=== PATIENT | female | born 1940 | race Caucasian/White ===

== ENCOUNTER → 2017-02-22 | Outpatient (CLI) | payer OTHER | LOC: BMCIMAGING 13:41 | PROVIDERS: ATTEND Internal Medicine | DX: Z12.31 Encounter for screening mammogram for malignant neoplasm of breast (principal); Z85.3 Personal history of malignant neoplasm of breast | CPT/HCPCS: G0202 ==

== ENCOUNTER → 2018-02-26 | Outpatient (CLI) | payer OTHER | LOC: BMCIMAGING 14:50 | PROVIDERS: ATTEND Internal Medicine | DX: Z12.31 Encounter for screening mammogram for malignant neoplasm of breast (principal); Z85.3 Personal history of malignant neoplasm of breast ==

== ENCOUNTER 2018-05-16 09:44 | Inpatient (IN) | payer OTHER ==
[2018-05-16] MEDS ORDERED: NS 500 ML IV ONE (10:14)
--- NOTE | 2018-05-16 10:17 | EDPHY ---
H & P Stated Complaint: abd pain bloating snce monday n/v Time Seen by Provider: 05/16/18 10:10 HPI/ROS: CHIEF COMPLAINT: Right lower quadrant abdominal pain, bloating x3 days HISTORY OF PRESENT ILLNESS: 77-year-old female with history of colon cancer with colon resection in [address] Zeke Miranda in the ER complaining of 3 days of right lower quadrant pain, bloating, nausea. Bowel movements normal. Last bowel movement was yesterday. No vomiting. No back or flank pain. No chest pain. No dyspnea. No urinary abnormality. Last oral intake was dinner last evening PRIMARY CARE PROVIDER: REVIEW OF SYSTEMS: 10 systems reviewed and negative with the exception of the elements mentioned in the history of present illness PAST MEDICAL & SURGICAL HISTORY: Colon cancer. Partial colectomy SOCIAL HISTORY: nonsmoker PHYSICAL EXAM (Prior to examination, patient consented to physical exam, hands were washed and my usual and customary physical exam procedures followed) 1) GENERAL: Well-developed, well-nourished, alert and oriented. Appears to be in no acute distress. 2) HEAD: Normocephalic, atraumatic 3) HEENT: Pupils equal, round, reactive to light bilaterally. Sclera anicteric. 4) NECK: Full range of motion, no meningeal signs. 5) LUNGS: Clear auscultation bilaterally, no wheezes, no rhonchi, no retractions. 6) HEART: Regular rate and rhythm, no murmur, no heave, no gallop. 7) ABDOMEN: No guarding, tender to palpation right lower quadrant, negative Burns's, negative Rovsing's, negative peritoneal sign, 8) MUSCULOSKELETAL: Moving all extremities, no focal areas of tenderness, no obvious trauma. No peripheral edema or discoloration. 9) BACK: No CVA tenderness, no midline vertebral tenderness, no fluctuance, no step-off, no obvious trauma, no visual or palpable abnormality. 10) SKIN: No rash, no petechiae. 11) Psychiatric: Patient is oriented X 3, there is no agitation. DIFFERENTIAL DIAGNOSIS: In no particular order including but not limited to malignancy, acute appendicitis, bowel obstruction, acute diverticulitis - Personal History Current Tetanus Diphtheria and Acellular Pertussis (TDAP): Yes - Medical/Surgical History Hx Asthma: No Hx Chronic Respiratory Disease: No Hx Diabetes: No Hx Cardiac Disease: No Hx Renal Disease: No Hx Cirrhosis: No Hx Alcoholism: No Hx HIV/AIDS: No Hx Splenectomy or Spleen Trauma: No Other PMH: htn, arthritis in spine. colon cancer. abd surgeries, colon polyp, lumpectomy right for breast ca. angioplasty "i have a stent in my groin" - Social History Smoking Status: Former smoker Constitutional: Initial Vital Signs Temperature (C) 36.5 C 05/16/18 09:54 Heart Rate 59 L 05/16/18 09:54 Respiratory Rate 18 05/16/18 09:54 Blood Pressure 184/65 H 05/16/18 09:54 O2 Sat (%) 97 05/16/18 09:54 O2 Delivery Mode Room Air Allergies/Adverse Reactions: No Known Allergies Allergy (Verified 05/16/18 09:53) Home Medications: Medication Instructions Recorded Lisinopril/Hydrochlorothiazide 1 each PO DAILY 12/24/13 [Zestoretic 20-25 mg Tablet] Metoprolol Tartrate [Lopressor 100 100 mg PO TID 12/24/13 mg (*)] hydrALAZINE [Apresoline 50 mg (*)] 50 mg PO BID 12/24/13 Naproxen Sodium [Aleve 220 MG (*)] 220 mg PO BID PRN 05/16/18 Medical Decision Making - Diagnostics Imaging Results: Imaging Impressions Abdomen CT 05/16/18 11:10 Impression: 1. Moderately dilated mid small bowel within the lower abdomen to upper pelvis with possible internal hernia versus closed loop volvulus. 2. Mild to moderate dilatation of distal small bowel with point of gradual transition in the right lower pelvis posteriorly without definitive point of obstruction although the mid to distal ileum is decompressed. 3. Extensive arteriosclerotic calcification of the abdominal aorta and pelvic branches without evidence for occlusion similar to the prior study from February,. 4. Stable mild compression superior endplate of T12. Previous DEXA scan revealed low bone mineral density. Findings discussed with Emmy Murillo PAC at 12:06 hour, 05/16/2018. Abdomen X-Ray 05/16/18 12:20 Impression: NG tube coiled in the stomach. Images reviewed myself ED Course/Re-evaluation: 10:16 a.m.: Old medical records reviewed by myself. Will plan on diagnostic studies and CT imaging of the abdomen for right lower quadrant abdominal pain. Indications risks benefits discussed with patient she provides verbal consent. I saw this patient independently based on established practice protocols. Care of patient under supervision of secondary supervising physician Dr Lr with whom I discussed case. 12:17 p.m.: Consultation with the patient's surgeon Dr. Zeke Miranda. I discussed with him with the imaging findings showing a small bowel obstruction, small bowel volvulus in the pelvis. He agrees to admit the patient primarily, request NG tube be placed in the ER which will be. - Data Points Laboratory Results: Laboratory Results 05/16/18 10:10 05/16/18 10:10 05/16/18 05/16/18 05/16/18 10:19 10:10 10:10 WBC RBC Hgb POC Hgb 15.0 gm/dL gm/dL (12.6-16.3) Hct POC Hct 44 % % (38-47) MCV MCH MCHC RDW Plt Count MPV Neut % (Auto) Lymph % (Auto) [place] % (Auto) Eos % (Auto) Baso % (Auto) Nucleat RBC Rel Count Absolute Neuts (auto) Absolute Lymphs (auto) Absolute Monos (auto) Absolute Eos (auto) Absolute Basos (auto) Absolute Nucleated RBC Immature Gran % Immature Gran # PT 12.3 SEC SEC (12.0-15.0) INR 0.89 (0.83-1.16) APTT 26.3 SEC SEC (23.0-38.0) POC Sodium 134 mEq/L L mEq/L (135-145) Sodium 135 mEq/L mEq/L (135-145) POC Potassium 3.5 mEq/L mEq/L (3.3-5.0) Potassium 3.9 mEq/L mEq/L (3.3-5.0) POC Chloride 96 mEq/L L mEq/L (97-110) Chloride 94 mEq/L L mEq/L (97-110) Carbon Dioxide 24 mEq/l mEq/l (22-31) Anion Gap 17 mEq/L H mEq/L (8-16) POC BUN 30 mg/dL H mg/dL (7-23) BUN 33 mg/dL H mg/dL (7-23) Creatinine 1.0 mg/dL mg/dL (0.6-1.0) POC Creatinine 1.1 mg/dL H mg/dL (0.6-1.0) Estimated GFR 53 Glucose 92 mg/dL mg/dL (70-100) POC Glucose 97 mg/dL mg/dL (70-100) Calcium 9.9 mg/dL mg/dL (8.5-10.4) Total Bilirubin 1.8 mg/dL H mg/dL (0.1-1.4) Conjugated Bilirubin 0.2 mg/dL mg/dL (0.0-0.5) Unconjugated Bilirubin 1.6 mg/dL H mg/dL (0.0-1.1) AST 32 IU/L IU/L (14-46) ALT 34 IU/L IU/L (9-52) Alkaline Phosphatase 76 IU/L IU/L (38-126) Total Protein 7.1 g/dL g/dL (6.3-8.2) Albumin 4.6 g/dL g/dL (3.5-5.0) Lipase 305 IU/L H IU/L (23-300) 05/16/18 10:10 WBC 8.20 10^3/uL 10^3/uL (3.80-9.50) RBC 3.79 10^6/uL L 10^6/uL (4.18-5.33) Hgb 13.7 g/dL g/dL (12.6-16.3) POC Hgb Hct 39.0 % % (38.0-47.0) POC Hct MCV 102.9 fL H fL (81.5-99.8) MCH 36.1 pg H pg (27.9-34.1) MCHC 35.1 g/dL g/dL (32.4-36.7) RDW 13.0 % % (11.5-15.2) Plt Count 341 10^3/uL 10^3/uL (150-400) MPV 9.6 fL fL (8.7-11.7) Neut % (Auto) 77.5 % H % (39.3-74.2) Lymph % (Auto) 13.7 % L % (15.0-45.0) [place] % (Auto) 7.7 % % (4.5-13.0) Eos % (Auto) 0.2 % L % (0.6-7.6) Baso % (Auto) 0.4 % % (0.3-1.7) Nucleat RBC Rel Count 0.0 % % (0.0-0.2) Absolute Neuts (auto) 6.36 10^3/uL 10^3/uL (1.70-6.50) Absolute Lymphs (auto) 1.12 10^3/uL 10^3/uL (1.00-3.00) Absolute Monos (auto) 0.63 10^3/uL 10^3/uL (0.30-0.80) Absolute Eos (auto) 0.02 10^3/uL L 10^3/uL (0.03-0.40) Absolute Basos (auto) 0.03 10^3/uL 10^3/uL (0.02-0.10) Absolute Nucleated RBC 0.00 10^3/uL 10^3/uL (0-0.01) Immature Gran % 0.5 % % (0.0-1.1) Immature Gran # 0.04 10^3/uL 10^3/uL (0.00-0.10) PT INR APTT POC Sodium Sodium POC Potassium Potassium POC Chloride Chloride Carbon Dioxide Anion Gap POC BUN BUN Creatinine POC Creatinine Estimated GFR Glucose POC Glucose Calcium Total Bilirubin Conjugated Bilirubin Unconjugated Bilirubin AST ALT Alkaline Phosphatase Total Protein Albumin Lipase Medications Given: Dextrose/Sodium Chloride (D5w 1/2 Ns) 1,000 mls @ 75 mls/hr IV CONT [facility] Stop: 11/12/18 13:59 Last Admin: 05/16/18 14:30 Dose: 1,000 mls Discontinued Medications Fentanyl (Sublimaze) 100 mcg IVP EDNOW ONE Stop: 05/16/18 12:21 Last Admin: 05/16/18 12:29 Dose: 100 mcg Sodium Chloride (Ns) 500 mls @ 0 mls/hr IV ONCE ONE PRN Reason: Wide Open Stop: 05/16/18 10:15 Last Admin: 05/16/18 10:18 Dose: 500 mls Sodium Chloride (Ns) 1,000 mls @ 0 mls/hr IV ONCE ONE PRN Reason: Wide Open Stop: 05/16/18 12:21 Last Admin: 05/16/18 12:29 Dose: 1,000 mls Point of Care Test Results: Chemistry 05/16/18 10:19 POC Sodium 134 mEq/L L mEq/L (135-145) POC Potassium 3.5 mEq/L mEq/L (3.3-5.0) POC Chloride 96 mEq/L L mEq/L (97-110) POC BUN 30 mg/dL H mg/dL (7-23) POC Creatinine 1.1 mg/dL H mg/dL (0.6-1.0) POC Glucose 97 mg/dL mg/dL (70-100) ISTAT H&H 05/16/18 10:19 POC Hgb 15.0 gm/dL gm/dL (12.6-16.3) POC Hct 44 % % (38-47) Departure - Departure Disposition: [facility] Inpatient Acute Clinical Impression: Small bowel obstruction, Volvulus of small intestine Condition: Fair
[2018-05-16 10:34] LABS: PLATELET COUNT 341 10^3/uL (150-400)
[2018-05-16 10:40] LABS: INR 0.89 (0.83-1.16); PROTIME(PATIENT) 12.3 SEC (12.0-15.0)
[2018-05-16] MEDS ORDERED: IOPAMIDOL (ISOVUE-300) 100 ML BTL ONE (11:16)
[2018-05-16] MEDS ORDERED: NS 1,000 ML IV ONE (12:20)
[2018-05-16] MEDS ORDERED: fentaNYL 100 MCG/2 ML INJ IVP ONE (12:20)
[2018-05-16] MEDS ORDERED: ZOLPIDEM TARTRATE 5 MG TAB PO PRN (13:55)
[2018-05-16] MEDS ORDERED: ONDANSETRON 4 MG/2 ML VIAL IVP PRN (13:55)
[2018-05-16] MEDS ORDERED: ACETAMINOPHEN 325 MG TAB PO PRN (13:55)
[2018-05-16] MEDS ORDERED: D5W 1/2 NS 1,000 ML IV SCH (14:00)
[2018-05-16] MEDS ORDERED: NAPROXEN SODIUM 220 MG TAB PO PRN (14:05)
[2018-05-16] MEDS: METOPROLOL TARTRATE 50 MG TAB PO SCH ×2 (16:25→22:00)
--- NOTE | 2018-05-16 20:44 | GCON ---
CHIEF COMPLAINT: Abdominal pain. HPI: 77-year-old female, well known to our practice, who presented to the ER this morning for complaints of abdominal pain and nausea. She states her symptoms began on Monday night. She was experiencing significant abdominal bloating, bilateral low abdominal pain, and nausea. She did vomit yesterday. Her last bowel movement was yesterday afternoon. Denies constipation or diarrhea. Her abdominal pain worsens with meals. She has been tolerating fluids well. She has a significant past medical history of colon cancer, for which she had a sigmoid colon resection in 2005. She states she has had a bowel obstruction once in the past, but is unable to recall the details - this resolved with NG management. CT scan performed while in the ED revealed dilated loops of small bowel consistent with a PSBO. Denies shortness of breath or chest pain. No fevers or chills. No hematemesis or hematochezia. No urinary complaints. No other concerns. CURRENT MEDICATIONS: Metoprolol, lisinopril, hydralazine, I-caps plus, aspirin. 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 PAST SURGICAL HISTORY: Sigmoid colectomy in August 2005, right lumpectomy with sentinel lymph node biopsy in August 2010, and bilateral cataract surgery in 2014. FAMILY HISTORY: Noncontributory. SOCIAL HISTORY: A former smoker. Retired. to [employer]. Occasional alcohol. No recreational drugs. ALLERGIES: No known drug allergies. REVIEW OF SYSTEMS: A 12-point review of systems was reviewed and otherwise negative as above. PHYSICAL EXAM: VITAL SIGNS: Blood pressure 192/64, heart rate 53, O2 sat 94%, respiratory rate 16, temperature 36.7 C. GENERAL: Appears comfortable, in no distress. HEENT: Anicteric. No cervical or supraclavicular lymphadenopathy. Nasogastric tube in place- 200cc gastric fluid drainage. HEART: Bradycardic, regular rhythm without murmurs. LUNGS: Clear to auscultation bilaterally. ABDOMEN: Soft, distended, mild tenderness in the suprapubic region and right lower quadrant. No rebound tenderness or guarding. No other peritoneal signs. NEUROLOGIC: nonfocal. EXTREMITIES: No edema bilaterally. SKIN: Normal. ASSESSMENT: Small bowel obstruction. PLAN: Agree with diagnosis of small bowel obstruction as seen on CT scan. No concern for ischemic bowel at this time. Imaging reviewed on PACS. She had a nasogastric tube placed in the ER, which has relieved some of her nausea. Plan to admit patient to Med-Surg. Will continue with bowel decompression and IV fluids. Clear fluid diet okay. Activity as tolerated. If no resolution within 2-3 days or clinical decompensation, consideration for surgical exploration to be entertained at that time. Patient seen by Dr. Miranda as well. /[id number]/MODL MTDD
[2018-05-16] MEDS: D5W 1/2 NS W/ 20 KCl/L 1,000 ML IV SCH (22:45)
[2018-05-17] MEDS: METOPROLOL TARTRATE 50 MG TAB PO SCH ×3 (09:25→22:33)
[2018-05-17] MEDS: HYDROCHLOROTHIAZIDE 25 MG TAB PO SCH (09:25)
[2018-05-17] MEDS: LISINOPRIL 20 MG TAB PO SCH (09:26)
[2018-05-17] MEDS: KETOROLAC 15 MG/1 ML SDV IVP PRN (09:35)
--- NOTE | 2018-05-17 10:45 | PDMN ---
Medical Necessity Medical necessity: Pt meets IP criteria per PA & MCG M-210; est los >2 mn for eval/tx of SBO; requiring NG tube & IVFs; per consult & order 05/16/18
[2018-05-17] MEDS: HYDROmorphONE/DILAUDID 1 MG/ML INJ IVP PRN ×2 (11:56→14:41)
[2018-05-17] MEDS: D5W 1/2 NS W/ 20 KCl/L 1,000 ML IV SCH (14:41)
[2018-05-17] MEDS ORDERED: BUPIVACAINE/EPI 0.5% 30 ML SDV ONE (15:38)
[2018-05-17] MEDS ORDERED: cefOXitin SODIUM 2 GM in NS 100 ML IV ONE (15:56)
--- NOTE | 2018-05-17 15:56 | SOAPPROG ---
SOAP Progress Note Assessment/Plan: Assessment:no overnight progress. no flatus. pain persists. avss. abd dist, mild tenderness persists across lower abd bowel loops. KUB unchanged. SBO - needs exploration for failure to progress and concerns for possible closed loop obstruction. risks and benefits discussed in detail with patient. will attempt laparoscopically. all questions answered. Plan: 05/17/18 15:52 Objective: Vital Signs Temp Pulse Resp BP Pulse Ox 36.8 C 62 16 175/63 H 94 05/17/18 11:51 05/17/18 11:51 05/17/18 11:51 05/17/18 11:51 05/17/18 11:51 Laboratory Results 05/17/18 04:30 05/16/18 05/17/18 05/18/18 05:59 05:59 05:59 Intake Total 396 703 Output Total 600 100 Balance -204 603 PT 12.3 SEC (12.0-15.0) 05/16/18 10:10 INR 0.89 (0.83-1.16) 05/16/18 10:10 ICD10 Worksheet Patient Problems: Problems Problem Status Onset Small bowel obstruction Acute Volvulus of small intestine Acute
--- NOTE | 2018-05-17 17:16 | PDANEPAE ---
ANE Past Medical History - Cardiovascular History Hx Hypertension: Yes Hx Arrhythmias: No Hx Chest Pain: No Hx Coronary Artery / Peripheral Vascular Disease: Yes Hx CHF / Valvular Disease: No Hx Palpitations: No - Pulmonary History Hx COPD: No Hx Asthma/Reactive Airway Disease: No Hx Recent Upper Respiratory Infection: No Hx Oxygen in Use at Home: No Hx Sleep Apnea: No Sleep Apnea Screening Result - Last Documented: Positive - Neurologic History Hx Cerebrovascular Accident: No Hx Seizures: No Hx Dementia: No - Endocrine History Hx Diabetes: No - Renal History Hx Renal Disorders: No - Liver History Hx Hepatic Disorders: No - Neurological & Psychiatric Hx Hx Neurological and Psychiatric Disorders: No - Cancer History Hx Cancer: Yes Cancer History Comment: colon CA 2006 - Congenital Disorder History Hx Congenital Disorders: No - GI History Hx Gastrointestinal Disorders: Yes Gastrointestinal History Comment: colon CA - Other Health History Other Health History: AMD - Chronic Pain History Chronic Pain: Yes - Surgical History Prior Surgeries: Lumpectomy rt., Colon resection, ANE Review of Systems Review of Systems: ANE Patient History - Allergies Allergies/Adverse Reactions: No Known Allergies Allergy (Verified 05/16/18 09:53) - Home Medications Home Medications: Lisinopril/Hydrochlorothiazide [Zestoretic 20-25 mg Tablet] 1 each PO DAILY [Last Taken 05/16/18] Metoprolol Tartrate [Lopressor 100 mg (*)] 100 mg PO TID 12/24/13 [Last Taken ] hydrALAZINE [Apresoline 50 mg (*)] 50 mg PO BID 12/24/13 [Last Taken 05/16/18] Naproxen Sodium [Aleve 220 MG (*)] 220 mg PO BID PRN 05/16/18 [Last Taken Unknown] - NPO status NPO Since - Liquids (Date): 05/17/18 NPO Since - Liquids (Time): 13:00 NPO Since - Solids (Date): 05/16/18 NPO Since - Solids (Time): 00:00 - Smoking Hx Smoking Status: Former smoker ANE Labs/Vital Signs - Labs Result Diagrams: 05/16/18 10:10 05/17/18 04:30 - Vital Signs Blood Pressure: 161/83 Heart Rate: 68 Respiratory Rate: 16 O2 Sat (%): 97 Height: 166.37 cm Weight: 51.9 kg ANE Physical Exam - Airway Mallampati Score: Class 2 - ASA Status ASA Status: II ANE Anesthesia Plan Anesthesia Plan: general endotracheal anesthesia
[2018-05-17] MEDS ORDERED: MIDAZOLAM 2 MG/2 ML VIAL ONE (17:25)
[2018-05-17] MEDS ORDERED: fentaNYL 100 MCG/2 ML INJ ONE ×3 (17:25→20:16)
[2018-05-17] MEDS ORDERED: PROPOFOL 200 MG/20 ML VIAL ONE (17:26)
[2018-05-17] MEDS ORDERED: ONDANSETRON 4 MG/2 ML VIAL ONE ×2 (17:27→19:33)
[2018-05-17] MEDS ORDERED: ROCURONIUM 50 MG/5 ML VIAL ONE (17:27)
[2018-05-17] MEDS ORDERED: SUGAMMADEX SODIUM 200 MG/2 ML VIAL IVP ONE (19:33)
--- NOTE | 2018-05-17 19:44 | POSTOPPROG ---
Post Op Note Date of Operation: 05/17/18 Surgeon: Zeke Miranda Production Expert: Emily Soriano Anesthesiologist: Mert Preston Anesthesia: GET(General Endotracheal) Pre-op Diagnosis: SBO Post-op Diagnosis: Same Procedure: Lap GOOD/open SBR Findings: closed loop obstruction secondary to internal hernia - ischemic ileum Inf/Abcess present in the surg proc area at time of surgery?: Yes Depth: Organ Space EBL: Minimal Total fluids administered: 1200 Complications: no immediate Specimen(s): small bowel
[2018-05-17] MEDS ORDERED: LABETALOL HCL 5 MG/ML 20 ML MDV IVP PRN (20:00)
[2018-05-17] MEDS ORDERED: NALOXONE HCL 0.4 MG/ML INJ IVP PRN (20:00)
[2018-05-17] MEDS ORDERED: ONDANSETRON 4 MG/2 ML VIAL IVP PRN (20:00)
[2018-05-17] MEDS ORDERED: hydrALAZINE 20 MG/ML VIAL IVP PRN (20:03)
[2018-05-17] MEDS ORDERED: LABETALOL HCL 5 MG/ML 20 ML MDV ONE (20:03)
--- NOTE | 2018-05-17 20:03 | POSTANESTH ---
Post Anesthetic Evaluation Cardiovascular Status: Similar to Pre-Op Cond Respiratory Status: Normal, Stable Level of Consciousness/Mental Status: Can Participate in Eval Pain Control: Adequate, Prn Tx Ordered Nausea/Vomiting Control: Adequate, Prn Tx Ordered Complications Possibly Related to Anesthesia: None Noted
[2018-05-17] MEDS ORDERED: MEPERIDINE 25 MG/0.5 ML AMP IVP ONE (20:05)
[2018-05-17] MEDS ORDERED: MEPERIDINE 25 MG/0.5 ML AMP ONE ×2 (20:06→20:07)
[2018-05-17] MEDS: fentaNYL 100 MCG/2 ML INJ IVP PRN ×2 (20:20→21:26)
[2018-05-18] MEDS: cefOXitin SODIUM 1 GM in NS 50 ML IV SCH ×4 (00:09→17:41)
[2018-05-18] MEDS: HYDROmorphONE/DILAUDID 1 MG/ML INJ IVP PRN (02:07)
--- NOTE | 2018-05-18 06:32 | GOP ---
DATE OF OPERATION: 05/16/2018 SURGEON: Zeke Miranda MD TELEVISION MAINTENANCE MAN: Emily Soriano PA-C ANESTHESIOLOGIST: Mert Preston MD PREOPERATIVE DIAGNOSIS: Small bowel obstruction. POSTOPERATIVE DIAGNOSIS: Small bowel obstruction. PROCEDURE PERFORMED: 1. Laparoscopic lysis of adhesions. 2. Open completion lysis of adhesions with small bowel resection x2. FINDINGS: See below. INDICATIONS: 77-year-old female, status post remote colectomy for colon cancer. She presented to the hospital yesterday with findings consistent with a partial small bowel obstruction. A nasogastric tube was placed. She failed to progress, with concerns for a possible closed loop findings today. She is undergoing surgical exploration at this time. Risks and benefits were explained on bleeding, infection, bowel injury, indications for bowel resection , anastomotic leak, recurrent obstruction, open conversion, as well as others. All questions were answered. She desires to proceed. A surgical supervisor is standard and necessary and customary for the safe performance of this procedure. DESCRIPTION OF PROCEDURE: After general anesthesia was induced, the abdomen was preinjected with 0.5% Marcaine with epinephrine. A vertical infraumbilical cutdown was created. A 10 mm trocar was placed under direct visualization. Two additional 5 mm left lower quadrant ports were inserted. A small amount of clear ascites was present. The mid small bowel was noted to be ischemic in appearance. A solitary tethering adhesive band was able to be traced across the distal ileum coursing toward the right lower quadrant. This band was lysed , opening up the remaining aspects of incarcerated internal hernia. Significant time was spent trying to detorse the small bowel from the hernia sac. This was able to be performed in part. The final aspects of decompressing the internal hernia tunnel beneath the small bowel mesentery were unable to be safely completed with the laparoscope. The bowel was completely friable at this location. A small enterotomy was created with further manipulation. Given the impasse here, it was opted to open the midline incision to complete the operation. The prior midline incision was reopened. The small bowel was eviscerated. The bowel was occluded both proximal and distal to the enterotomy site. This portion of bowel was further lysed from the dense pelvic adhesions. This portion was initially excised given the enterotomy as well as denuded surrounding tissue from concrete pelvic adhesiolysis. A [id number] stapled anastomosis was initially created leaving the ischemic segment intact in hopes that this would continue to pink up. The abdomen was copiously irrigated until clear. The initial ischemic area was showing no signs of pinking with concerns of ongoing ull-thickness ischemia. This second segment was subsequently further resected in stapled [id number] fashion. The mesentery had been taken between clamps and ties. The remaining small bowel was run from the ileocecal valve to the ligament of Treitz showing no further other abnormalities. The remaining bowel appeared pink, and healthy and viable throughout. Abdominal exploration revealed a smooth liver without masses. No pelvic masses were noted. The small bowel was replaced back into the abdominal cavity. The omentum was replaced over the midline visceral contents. The fascia was closed with running PDS suture, followed by Dermabond. The patient was extubated in the operating room and taken to recovery uneventfully. /[id number]/MODL MTDD
[2018-05-18] MEDS: KETOROLAC 15 MG/1 ML SDV IVP PRN ×3 (07:26→21:21)
--- NOTE | 2018-05-18 08:43 | SOAPPROG ---
SOAP Progress Note Assessment/Plan: Assessment:c/o surgical site pain - signif different from preop. controlled with med. no flatus. afebrile. BP 150's. comfortable. abd dist, soft. incis clean. no further palp SB loops. WBC 2. K 3. pod#1 s/p SBR/reduction SBO. doing well overall. hypok - supplement. cont NG for today. ambulate. repeat CBC in am. remove carmen. Plan: 05/17/18 15:52 05/18/18 08:41 Objective: Vital Signs Temp Pulse Resp BP Pulse Ox 37.6 C 92 18 145/88 H 90 L 05/18/18 07:31 05/18/18 07:31 05/18/18 07:31 05/18/18 07:31 05/18/18 07:31 Laboratory Results 05/18/18 04:49 05/18/18 04:49 05/17/18 05/18/18 05/19/18 05:59 05:59 05:59 Intake Total 396 2962 362 Output Total 600 1125 300 Balance -204 1837 62 PT 12.3 SEC (12.0-15.0) 05/16/18 10:10 INR 0.89 (0.83-1.16) 05/16/18 10:10 ICD10 Worksheet Patient Problems: Problems Problem Status Onset Small bowel obstruction Acute Volvulus of small intestine Acute
[2018-05-18] MEDS: LISINOPRIL 20 MG TAB PO SCH (09:22)
[2018-05-18] MEDS: HYDROCHLOROTHIAZIDE 25 MG TAB PO SCH (09:23)
[2018-05-18] MEDS: METOPROLOL TARTRATE 50 MG TAB PO SCH ×3 (09:23→21:21)
[2018-05-18] MEDS: POTASSIUM Cl (KCl) 100 ML IV SCH ×4 (10:18→14:52)
--- NOTE | 2018-05-18 10:44 | ASMTCMCOM ---
CM Note CM Note Notes: Chart reviewed 77 year old female admitted via ED with c/o abdominal pain and history of colon cancer s/p colectomy. She reports 3 days of pain in her right lower quadrant. Diagnosed with SBO. Need to be determined. CM to follow. Plan: TBD Date Signed: 05/16/2018 03:20 PM Electronically Signed By:Lisy Rea RN
--- NOTE | 2018-05-18 10:46 | ASMTCMCOM ---
CM Note CM Note Notes: Chart reviewed. Patient post op day1 s/p colectomywith Dr. Miranda . Plan of care still unclear. No therapies currently ordered. CM to follow for needs Plan: TBD Date Signed: 05/18/2018 10:45 AM Electronically Signed By:Lisy Rea RN
[2018-05-19] MEDS: KETOROLAC 15 MG/1 ML SDV IVP PRN (03:50)
[2018-05-19] MEDS: D5W 1/2 NS W/ 20 KCl/L 1,000 ML IV SCH (03:57)
[2018-05-19] MEDS: HYDROCHLOROTHIAZIDE 25 MG TAB PO SCH (08:50)
[2018-05-19] MEDS: LISINOPRIL 20 MG TAB PO SCH (08:50)
[2018-05-19] MEDS: METOPROLOL TARTRATE 50 MG TAB PO SCH ×3 (08:50→21:09)
[2018-05-19] MEDS ORDERED: POTASSIUM CL 20 MEQ TAB PO ONE (13:58)
--- NOTE | 2018-05-19 13:58 | SOAPPROG ---
SOAP Progress Note Assessment/Plan: Assessment:no overnight issues. +flatus. NG fell out. AVSS. comfortable. abd dist, soft. incis clean. pod#2 s/p SBR. improving. K supplement. Adv diet. ambulate. home 1-2 days. Plan: 05/17/18 15:52 05/18/18 08:41 05/19/18 13:56 Objective: Vital Signs Temp Pulse Resp BP Pulse Ox 36.6 C 80 16 112/56 L 96 05/19/18 12:00 05/19/18 12:00 05/19/18 12:00 05/19/18 12:00 05/19/18 12:00 Laboratory Results 05/19/18 04:28 05/19/18 04:28 05/18/18 05/19/18 05/20/18 05:59 05:59 05:59 Intake Total 2962 3642 600 Output Total 1125 2750 200 Balance 1837 892 400 PT 12.3 SEC (12.0-15.0) 05/16/18 10:10 INR 0.89 (0.83-1.16) 05/16/18 10:10 ICD10 Worksheet Patient Problems: Problems Problem Status Onset Small bowel obstruction Acute Volvulus of small intestine Acute
[2018-05-20] MEDS: HYDROmorphONE/DILAUDID 1 MG/ML INJ IVP PRN (07:12)
[2018-05-20] MEDS: LISINOPRIL 20 MG TAB PO SCH (09:11)
[2018-05-20] MEDS: HYDROCHLOROTHIAZIDE 25 MG TAB PO SCH (09:13)
[2018-05-20] MEDS: METOPROLOL TARTRATE 50 MG TAB PO SCH ×3 (09:14→21:15)
[2018-05-20] MEDS ORDERED: IBUPROFEN 600 MG TAB PO PRN (12:07)
--- NOTE | 2018-05-20 12:08 | SOAPPROG ---
SOAP Progress Note Assessment/Plan: Assessment:good evening. pain controlled. no nausea. +flatus. rox po. still weak - working with PT. avss. comfortable. abd less distended. incis clean - small seroma distal incision drained. pod#3 s/p SBR. good progress. anticipate dc tomorrow. po meds today. cont diet as able. Plan: 05/17/18 15:52 05/18/18 08:41 05/19/18 13:56 05/20/18 12:07 Objective: Vital Signs Temp Pulse Resp BP Pulse Ox 36.6 C 64 16 129/63 H 92 05/20/18 08:12 05/20/18 09:14 05/20/18 08:12 05/20/18 09:14 05/20/18 08:12 Laboratory Results 05/19/18 04:28 05/19/18 04:28 05/19/18 05/20/18 05/21/18 05:59 05:59 05:59 Intake Total 3642 600 Output Total 2750 1300 Balance 892 -700 PT 12.3 SEC (12.0-15.0) 05/16/18 10:10 INR 0.89 (0.83-1.16) 05/16/18 10:10 ICD10 Worksheet Patient Problems: Problems Problem Status Onset Small bowel obstruction Acute Volvulus of small intestine Acute
[2018-05-20] MEDS ORDERED: ONDANSETRON DISINTEGRATING 4 MG TAB PO PRN (18:42)
[2018-05-20] MEDS: HYDROCODONE/APAP 5/325 TAB PO PRN (20:14)
--- NOTE | 2018-05-21 08:33 | SOAPPROG ---
SOAP Progress Note Assessment/Plan: Assessment:rougher evening. pain controlled with norco last viraj - awoke after 5 hours with worsening pain when going to bathroom. no nausea. +flatus. rox min po. still weak. avss. comfortable. abd soft, less distended. incis clean. pod#4 s/p SBR. pt more apprehensive today about discharge and functioning independently at home. will schedule pain meds today. cont diet as able. add bentyl. prob not ready for dc today - hopefully in am. Plan: 05/17/18 15:52 05/18/18 08:41 05/19/18 13:56 05/20/18 12:07 05/21/18 08:31 Objective: Vital Signs Temp Pulse Resp BP Pulse Ox 37.6 C 72 16 150/73 H 98 05/21/18 04:00 05/21/18 04:00 05/21/18 04:00 05/21/18 04:00 05/21/18 04:00 Laboratory Results 05/19/18 04:28 05/19/18 04:28 05/20/18 05/21/18 05/22/18 05:59 05:59 05:59 Intake Total 600 350 Output Total 1300 Balance -700 350 PT 12.3 SEC (12.0-15.0) 05/16/18 10:10 INR 0.89 (0.83-1.16) 05/16/18 10:10 ICD10 Worksheet Patient Problems: Problems Problem Status Onset Small bowel obstruction Acute Volvulus of small intestine Acute
[2018-05-21] MEDS: LISINOPRIL 20 MG TAB PO SCH (09:25)
[2018-05-21] MEDS: DICYCLOMINE 10 MG CAP PO PRN (09:25)
[2018-05-21] MEDS: METOPROLOL TARTRATE 50 MG TAB PO SCH ×3 (09:25→21:05)
[2018-05-21] MEDS: HYDROCHLOROTHIAZIDE 25 MG TAB PO SCH (09:26)
[2018-05-21] MEDS: ACETAMINOPHEN 325 MG TAB PO SCH ×2 (10:28→18:40)
[2018-05-21] MEDS: IBUPROFEN 600 MG TAB PO SCH ×3 (10:28→21:05)
[2018-05-21] MEDS ORDERED: ACETAMINOPHEN 325 MG TAB PO SCH (10:30)
--- NOTE | 2018-05-21 16:04 | ASMTCMCOM ---
CM Note CM Note Notes: Chart reviewed. Met with patient and her to discuss dc plan of care. They express genuine concern due to her having to navigate numerous stairs to enter the home.They are inquiring about hiring additional services for help at home and are also interested in HHC. I provided them with the [employer] and pointed out the section for help at home. I also gave them a list of HHC agencies that service [facility]. CM to follow. Plan: Dc to home with possible HHC and augmented services that are privately hired. Date Signed: 05/21/2018 04:03 PM Electronically Signed By:Lisy Rea RN
[2018-05-22] MEDS: IBUPROFEN 600 MG TAB PO SCH ×3 (06:04→22:03)
[2018-05-22] MEDS: ACETAMINOPHEN 325 MG TAB PO SCH ×4 (06:04→19:12)
[2018-05-22] MEDS: HYDROCHLOROTHIAZIDE 25 MG TAB PO SCH (09:19)
[2018-05-22] MEDS: LISINOPRIL 20 MG TAB PO SCH (09:19)
[2018-05-22] MEDS: METOPROLOL TARTRATE 50 MG TAB PO SCH ×3 (09:19→22:03)
--- NOTE | 2018-05-22 13:00 | ASMTCMCOM ---
CM Note CM Note Notes: Chart reviewed. Met with patient this am. Per her they will hire [facility] for supplemental care. I inquired about HHC agencies and she replied she is unsure and has no preference. Per her nurse she did walk this am. She c/o feeling bloated. Eating a little. Passing gas and stool. She has small area of wound dehiscence per her RN. Referral placed for HHC in allscripts. CM to follow. Plan: Home with HHC Date Signed: 05/22/2018 12:59 PM Electronically Signed By:Lisy Rea RN
[2018-05-22 13:36] LABS: PLATELET COUNT 264 10^3/uL (150-400)
[2018-05-22] MEDS ORDERED: IBUPROFEN 600 MG TAB PO PRN (15:09)
--- NOTE | 2018-05-22 16:30 | SOAPPROG ---
SOAP Progress Note Assessment/Plan: Assessment: still puny. marginal po. c/o surgical site pain - avoiding narcotics as she feels they make her too sleepy. + flatus. no nausea. avss. abd dist, approp incis tenderness. old murky hematoma evacuated. no erythema. no hernia. POD#5 s/p SBR. slow progress. she remains notably decompensated. patient not ready for discharge. discussed possible option of rehab - will reassess in am. repeat labs in am. encourage frequent small meals. encourage ambulation and showering. Plan: 05/17/18 15:52 05/18/18 08:41 05/19/18 13:56 05/20/18 12:07 05/21/18 08:31 05/22/18 16:25 Objective: Vital Signs Temp Pulse Resp BP Pulse Ox 36.5 C 72 16 101/46 L 97 05/22/18 11:31 05/22/18 11:31 05/22/18 11:31 05/22/18 11:31 05/22/18 11:31 Laboratory Results 05/22/18 13:22 05/19/18 04:28 05/21/18 05/22/18 05/23/18 05:59 05:59 05:59 Intake Total 350 1050 Output Total 750 Balance 350 1050 -750 PT 12.3 SEC (12.0-15.0) 05/16/18 10:10 INR 0.89 (0.83-1.16) 05/16/18 10:10 ICD10 Worksheet Patient Problems: Problems Problem Status Onset Small bowel obstruction Acute Volvulus of small intestine Acute
[2018-05-22] MEDS: traMADol 50 MG TAB PO PRN (17:52)
[2018-05-22] MEDS ORDERED: KETOROLAC 15 MG/1 ML SDV IVP SCH (18:00)
[2018-05-23] MEDS: ACETAMINOPHEN 325 MG TAB PO SCH ×4 (01:11→17:41)
[2018-05-23] MEDS: IBUPROFEN 600 MG TAB PO SCH ×4 (05:01→21:00)
[2018-05-23] MEDS ORDERED: PROTOCOL POTASSIUM 1 DOSE MISC PRN (06:01)
[2018-05-23] MEDS ORDERED: POTASSIUM CL 10 MEQ TAB PO ONE (06:13)
[2018-05-23] MEDS ORDERED: POTASSIUM CL 20 MEQ TAB PO ONE ×2 (07:59→16:40)
--- NOTE | 2018-05-23 08:41 | SOAPPROG ---
<EmilymarleenEmily - Last Filed: 05/23/18 08:34> SOAP Progress Note Assessment/Plan: Assessment/Plan: Increase WBC overnight, but clinically unchanged. Plan for abdominal CT and start Zosyn for suspected abdominal/pelvic abscess. Potassium protocol for low potassium. Will recheck K+ tomorrow am. Restart IV fluids. 05/23/18 08:58 Subjective: S/p small bowel resection POD#6. Diffuse abdominal pain- better controlled with tramadol. Having flatus. Drinking small amounts of fluid. No fevers or chills. No chest pain or palpitations. Objective: Vital Signs Temp Pulse Resp BP Pulse Ox 36.7 C 58 L 14 103/48 L 94 05/23/18 04:33 05/23/18 04:33 05/23/18 04:33 05/23/18 04:33 05/23/18 04:33 Laboratory Results 05/23/18 04:20 05/23/18 04:20 05/22/18 05/23/18 05/24/18 05:59 05:59 05:59 Intake Total 1050 750 Output Total 900 Balance 1050 -150 PT 12.3 SEC (12.0-15.0) 05/16/18 10:10 INR 0.89 (0.83-1.16) 05/16/18 10:10 Physical Exam: Gen: appears comfortable, no acute distress, afebrile HEENT: normal Heart: RRR, systolic murmur Lungs: CTA bilateral Abdomen: soft, distended, diffuse abdominal tenderness. Incision clean, inferior aspect with serosanguineous drainage. Ext: unremarkable ICD10 Worksheet Patient Problems: Problems Problem Status Onset Small bowel obstruction Acute Volvulus of small intestine Acute <Zeke Miranda - Last Filed: 05/23/18 16:38> SOAP Progress Note Assessment/Plan: Assessment: slow progress. CT reviewed - pelvic fluid without enhancement. patient comfortable - remains difficult to read. afebrile. abd dist, soft. wound clean. will continue zosyn for now for concerns of peritonitis (no drainable collection at this time). receiving K+. hold HCTZ. nutritional supplements. cont supportive care. will need to rescan if clinical deterioration occurs over the ensuing week. Plan: 05/23/18 16:35 Objective: Vital Signs Temp Pulse Resp BP Pulse Ox 36.5 C 81 18 94/47 L 96 05/23/18 16:14 05/23/18 16:23 05/23/18 16:14 05/23/18 16:23 05/23/18 16:14 Laboratory Results 05/23/18 04:20 05/23/18 04:20 05/22/18 05/23/18 05/24/18 05:59 05:59 05:59 Intake Total 1050 750 Output Total 900 Balance 1050 -150 PT 12.3 SEC (12.0-15.0) 05/16/18 10:10 INR 0.89 (0.83-1.16) 05/16/18 10:10
[2018-05-23] MEDS: LISINOPRIL 20 MG TAB PO SCH (08:46)
[2018-05-23] MEDS: METOPROLOL TARTRATE 50 MG TAB PO SCH ×3 (08:46→22:00)
[2018-05-23] MEDS ORDERED: IOPAMIDOL (ISOVUE-300) 100 ML BTL ONE (09:51)
[2018-05-23] MEDS: PIPERACILLIN/TAZO 3.375 GM/DEX 50 ML IV SCH ×2 (11:27→17:41)
--- NOTE | 2018-05-23 11:51 | ASMTCMCOM ---
CM Note CM Note Notes: Chart reviewed. Patient had CT of abdomen due to increased pain. Patient s/p small bowel resection and lysis of adhesions. Antibiotics started. Will need home care and she and her plan on employing [facility] for additional support. They have no family. Likely needs RN, PT and OT upon discharge. I [facility] place [facility] as patient states they have no preference. Plan: Home with [facility] services when medically cleared for discharge. Date Signed: 05/23/2018 11:50 AM Electronically Signed By:Lisy Rea RN
[2018-05-23] MEDS: traMADol 50 MG TAB PO PRN (15:00)
[2018-05-23] MEDS: HYDROCODONE/APAP 5/325 TAB PO PRN (20:15)
--- NOTE | 2018-05-23 20:20 | SOAPPROG ---
SOAP Progress Note Assessment/Plan: Assessment:called to reassess wound - large drainage when returning from bathroom. patient without complaints. distal wound dehiscence present with exposed viscera. will return to OR for re-closure this evening. discussed role of mesh, hernia, bowel injury. all questions answered. Plan: 05/23/18 16:35 05/23/18 20:19 Objective: Vital Signs Temp Pulse Resp BP Pulse Ox 36.3 C 90 15 119/57 L 96 05/23/18 20:02 05/23/18 20:02 05/23/18 20:02 05/23/18 20:02 05/23/18 20:02 Laboratory Results 05/23/18 04:20 05/23/18 04:20 05/22/18 05/23/18 05/24/18 05:59 05:59 05:59 Intake Total 0011 943 2245 Output Total 900 600 Balance 1050 -150 580 PT 12.3 SEC (12.0-15.0) 05/16/18 10:10 INR 0.89 (0.83-1.16) 05/16/18 10:10 ICD10 Worksheet Patient Problems: Problems Problem Status Onset Small bowel obstruction Acute Volvulus of small intestine Acute
[2018-05-23] MEDS ORDERED: BUPIVACAINE 0.5% 30 ML SDV ONE (20:49)
[2018-05-23] MEDS ORDERED: POLYMYXIN B SULFATE 500,000 UNIT/10 ML SYR IRR ONE (20:49)
[2018-05-23] MEDS ORDERED: BACITRACIN 50,000 UNITS/10 ML SYR IRR ONE (20:49)
--- NOTE | 2018-05-23 22:09 | PDANEPAE ---
ANE History of Present Illness 77 year old female for wound closure. History of htn. I week ago bowel obstruction. ANE Past Medical History - Cardiovascular History Hx Hypertension: Yes Hx Arrhythmias: No Hx Chest Pain: No Hx Coronary Artery / Peripheral Vascular Disease: Yes Hx CHF / Valvular Disease: No Hx Palpitations: No - Pulmonary History Hx COPD: No Hx Asthma/Reactive Airway Disease: No Hx Recent Upper Respiratory Infection: No Hx Oxygen in Use at Home: No Hx Sleep Apnea: No Sleep Apnea Screening Result - Last Documented: Positive - Neurologic History Hx Cerebrovascular Accident: No Hx Seizures: No Hx Dementia: No - Endocrine History Hx Diabetes: No - Renal History Hx Renal Disorders: No - Liver History Hx Hepatic Disorders: No - Neurological & Psychiatric Hx Hx Neurological and Psychiatric Disorders: No - Cancer History Hx Cancer: Yes Cancer History Comment: colon CA 2006 - Congenital Disorder History Hx Congenital Disorders: No - GI History Hx Gastrointestinal Disorders: Yes Gastrointestinal History Comment: colon CA - Other Health History Other Health History: AMD - Chronic Pain History Chronic Pain: Yes - Surgical History Prior Surgeries: Lumpectomy rt., Colon resection, ANE Review of Systems Review of systems is: negative Review of Systems: ANE Patient History - Allergies Allergies/Adverse Reactions: No Known Allergies Allergy (Verified 05/16/18 09:53) - Home Medications Home Medications: Lisinopril/Hydrochlorothiazide [Zestoretic 20-25 mg Tablet] 1 each PO DAILY [Last Taken 05/16/18] Metoprolol Tartrate [Lopressor 100 mg (*)] 100 mg PO TID 12/24/13 [Last Taken ] hydrALAZINE [Apresoline 50 mg (*)] 50 mg PO BID 12/24/13 [Last Taken 05/16/18] Naproxen Sodium [Aleve 220 MG (*)] 220 mg PO BID PRN 05/16/18 [Last Taken Unknown] - NPO status NPO Since - Liquids (Date): 05/23/18 NPO Since - Liquids (Time): 00:00 NPO Since - Solids (Date): 05/23/18 NPO Since - Solids (Time): 00:00 - Smoking Hx Smoking Status: Former smoker ANE Labs/Vital Signs - Labs Result Diagrams: 05/23/18 04:20 05/23/18 04:20 - Vital Signs Blood Pressure: 98/53 Heart Rate: 87 Respiratory Rate: 29 O2 Sat (%): 100 Height: 166.37 cm Weight: 51.9 kg ANE Physical Exam - Airway Neck exam: FROM Mouth exam: normal dental/mouth exam - Pulmonary Pulmonary: no respiratory distress - Cardiovascular Cardiovascular: regular rate and rhythym - ASA Status ASA Status: III, E ANE Anesthesia Plan Anesthesia Plan: general endotracheal anesthesia
[2018-05-23] MEDS ORDERED: PROPOFOL/EMULSION 500 MG/50 ML BOTTLE IV ONE (22:12)
[2018-05-23] MEDS ORDERED: fentaNYL 100 MCG/2 ML INJ ONE (22:13)
--- NOTE | 2018-05-23 22:16 | POSTOPPROG ---
Post Op Note Date of Operation: 05/24/18 Surgeon: Zeke Miranda Anesthesiologist: Johanne Parker Anesthesia: GET(General Endotracheal) Pre-op Diagnosis: Wound Dehiscence Post-op Diagnosis: Same Procedure: Closure abd dehiscence, SB repair, component separation with strattice Findings: disrupted suture line, intact anastomosis Inf/Abcess present in the surg proc area at time of surgery?: No EBL: 50-100 Drains: [place] Specimen(s): SB fragments
[2018-05-23] MEDS ORDERED: EPINEPHrine 1 MG/ML INJ ONE (22:24)
[2018-05-23] MEDS ORDERED: BUPIVACAINE 0.25% 30 ML SDV ONE (22:24)
[2018-05-23] MEDS ORDERED: HYDROmorphONE/DILAUDID 2 MG/ML INJ ONE (23:20)
[2018-05-24] MEDS ORDERED: DEXAMETHASONE 4 MG/ML VIAL IVP PRN (00:22)
[2018-05-24] MEDS ORDERED: LABETALOL HCL 5 MG/ML 20 ML MDV IVP PRN (00:22)
[2018-05-24] MEDS ORDERED: fentaNYL 100 MCG/2 ML INJ IVP PRN (00:22)
[2018-05-24] MEDS ORDERED: PROMETHAZINE HCL 25 MG/ML INJ IVP PRN (00:22)
[2018-05-24] MEDS ORDERED: MEPERIDINE 25 MG/0.5 ML AMP IVP PRN (00:22)
[2018-05-24] MEDS ORDERED: NALOXONE HCL 0.4 MG/ML INJ IVP PRN ×2 (00:22→01:24)
[2018-05-24] MEDS ORDERED: ALBUTEROL 3 ML DEYVIAL IH PRN (00:22)
[2018-05-24] MEDS ORDERED: EPINEPHrine 1 MG/ML INJ ONE (00:52)
[2018-05-24] MEDS ORDERED: BUPIVACAINE 0.25% 30 ML SDV ONE (00:52)
[2018-05-24] MEDS ORDERED: HYDROmorphONE/DILAUDID 6 MG/30 ML PCA IV PRN (01:24)
[2018-05-24] MEDS ORDERED: ALTEPLASE 2 MG VIAL IVP PRN (01:25)
[2018-05-24] MEDS ORDERED: D10W 1,000 ML IV PRN (01:27)
[2018-05-24 02:11] LABS: INR 1.16 (0.83-1.16)
[2018-05-24 02:24] LABS: PLATELET COUNT 439 10^3/uL (150-400)
[2018-05-24] MEDS: PIPERACILLIN/TAZO 3.375 GM/DEX 50 ML IV SCH ×4 (02:57→16:25)
[2018-05-24] MEDS: IBUPROFEN 600 MG TAB PO SCH (03:06)
[2018-05-24 05:01] LABS: PLATELET COUNT 405 10^3/uL (150-400)
[2018-05-24 05:08] LABS: INR 1.2 (0.83-1.16); PROTIME(PATIENT) 15.4 SEC (12.0-15.0)
[2018-05-24] MEDS: HEPARIN 5,000 UNIT/0.5 ML INJ SC SCH ×3 (06:04→21:05)
[2018-05-24] MEDS: ACETAMINOPHEN 325 MG TAB PO SCH ×2 (06:04)
[2018-05-24] MEDS: LR 1,000 ML IV SCH ×3 (06:14→21:22)
[2018-05-24] MEDS ORDERED: LR 1,000 ML IV SCH (07:00)
--- NOTE | 2018-05-24 07:48 | GOP ---
DATE OF OPERATION: 05/23/2018 SURGEON: Zeke Miranda MD ANESTHESIA: General. ANESTHESIOLOGIST: Dr. Parker. PREOPERATIVE DIAGNOSIS: Abdominal wound fascial dehiscence. POSTOPERATIVE DIAGNOSIS: Abdominal wound fascial dehiscence. PROCEDURE PERFORMED: 1. Reopening of recent laparotomy. 2. Abdominal washout with extensive adhesiolysis. 3. Enterotomy repair x3. 4. Repair of abdominal wall dehiscence with retrorectus component separation with Strattice mesh placement. 5. Transverse abdominis plane block. FINDINGS: 1. Wound dehiscence secondary to suture disruption. 2. Iatrogenic enterotomy-primarily repaired. INDICATIONS: 77-year-old female 1 week status post exploratory laparotomy with small bowel resection for a closed-loop small-bowel obstruction. Patient has been progressing slowly since her operation last week. She developed leukocytosis over the ensuing [address] imaging earlier this afternoon showed no evidence of intra-abdominal abscess. This evening upon returning from going to the bathroom, she developed an abdominal dehiscence with large fluid emanating from her wound. She is taken to the operating room tonight for abdominal exploration with wound closure. Surgical risks and benefits were explained to the patient in detail including but not limited to bleeding, infection, bowel injury, heightened risk for future hernia formation, as well as others. All questions were answered. She desires to proceed. DESCRIPTION OF PROCEDURE: General anesthesia was induced. The skin was further opened. Wound assessment disclosed a disrupted PDS suture line in the midportion of her wound. The knots were completely intact both proximally and distally as were the proximal and distal suture lines. The suture had simply snapped in half at its mid point and retracted. The remaining suture was removed. The abdominal cavity was explored. The pelvic fluid was initially evacuated. This was thin, old serosanguineous fluid without evidence of succus or purulence. The small bowel including the anastomosis was subsequently inspected. The patient had extremely dense concrete adhesions down into her pelvis to the sacral hollow as well as to the distal colon and fallopian tubes. These adhesions were extremely difficult to pull up. The bowel was traced back toward the ligament of Treitz and run from proximal to distal, showing no abnormalities other than appropriate postoperative edema. The distal bowel was traced from the ileocecal valve toward the pelvis again showing no abnormalities other than postoperative edema. Extensive time was spent dissecting the pelvic adhesions requisite in order to pull the anastomosis up. In so doing the anastomosis and an adjacent segment of ileum were inadvertently disrupted. Once the bowel was able to be completely released from the pelvis with the use of sharp dissection, the prior anastomosis was re-stapled with removal of but a few centimeters of bowel at this location. This bowel was otherwise viable without any concerns of ongoing ischemia. Two other areas adjacent to this were noted to be torn transversely. These 2 segments were able to be repaired in stapled fashion. Again, with minimal loss of small bowel other than a few centimeters at each location. Excellent luminal patency was assured in all 3 aforementioned locations. These areas were all tacked together with multiple PDS sutures to relieve tension along the staple lines. The abdomen was copiously irrigated until clear. The small bowel was returned back to the abdominal cavity. Sepramesh was placed into the pelvis as well as over the visceral contents. The transverse colon including a large portion of omentum was placed over the Seprafilm deep down into the pelvis as well. A TAP block was placed bilaterally with 60 cc of 0.25% Marcaine with epinephrine. A retrorectus component separation was subsequently completed bilaterally. The posterior fascia was closed with a running PDS suture. A Strattice mesh was placed in the retrorectus space, and the anterior fascia closed as well with a running PDS suture. The proximal portion of the wound had been stover holed with 2 separate pieces of Strattice mesh to overlay the proximal midline fascia. The wound was reapproximated using skin mike over a quarter-inch Lionel drain. The patient was extubated in the OR and taken to recovery in satisfactory condition. /[id number]/MODL MTDD
--- NOTE | 2018-05-24 08:09 | SOAPPROG ---
SOAP Progress Note Assessment/Plan: Assessment: s/p return to OR for wound dehiscence. feeling good today am. no pain at present. afebrile. VSS. alert, comfortable. abd dist, soft. dressing dry. ext scd. wbc 28. k 3.7. cr 1.2. pod#7/0 s/p SBR/wound dehiscence repair with component separation/strattice placement. doing well immediately postop. for PICC today, start TPN this evening, cont NG/carmen for today. elev Cr - likely prerenal, fluid challenge today am. hypo K - supplement. resume PT/ambulation. sq heparin for DVT prophylaxis. elev WBC - leukemoid reaction, supportive care, cont periop zosyn - will stop in the next few days. Plan: 05/23/18 16:35 05/23/18 20:19 05/24/18 08:08 05/24/18 08:09 Objective: Vital Signs Temp Pulse Resp BP Pulse Ox 36.8 C 96 14 100/62 96 05/24/18 07:51 05/24/18 07:20 05/24/18 07:20 05/24/18 07:20 05/24/18 07:20 Laboratory Results 05/24/18 04:18 05/24/18 04:18 05/23/18 05/24/18 05/25/18 05:59 05:59 05:59 Intake Total 750 4655 Output Total 900 900 Balance -150 3755 PT 15.4 SEC (12.0-15.0) H 05/24/18 04:18 INR 1.20 (0.83-1.16) H 05/24/18 04:18 ICD10 Worksheet Patient Problems: Problems Problem Status Onset Small bowel obstruction Acute Volvulus of small intestine Acute
[2018-05-24] MEDS ORDERED: MAGNESIUM SULF 2 GM/WATER 50 ML IV ONE (08:13)
[2018-05-24] MEDS: LISINOPRIL 20 MG TAB PO SCH (09:37)
[2018-05-24] MEDS: METOPROLOL TARTRATE 50 MG TAB PO SCH ×3 (09:37→21:35)
[2018-05-24] MEDS: POTASSIUM Cl (KCl) 100 ML IV SCH ×4 (11:06→16:02)
[2018-05-24] MEDS: traMADol 50 MG TAB PO PRN (12:17)
[2018-05-24] MEDS: oxyCODONE IR 5 MG TAB PO PRN ×2 (12:17→16:17)
[2018-05-24] MEDS: HYDROmorphone HCL 0.5 MG/0.5 ML SYR IVP PRN ×3 (13:40→21:18)
[2018-05-24] MEDS ORDERED: HYDROmorphONE/DILAUDID 2 MG/ML INJ IVP PRN (14:00)
[2018-05-24] MEDS ORDERED: HYDROmorphone HCL 0.5 MG/0.5 ML SYR IVP PRN (14:00)
--- NOTE | 2018-05-24 14:42 | ASMTCMCOM ---
CM Note CM Note Notes: Referral made to [facility] for RN/PT/OT. Will call when pt's d/c date is known. CM to follow. D/C Plan: [facility] RN/PT/OT. Unskilled paid for by family. Date Signed: 05/24/2018 02:42 PM Electronically Signed By:Kaylin Narvaez
[2018-05-24] MEDS ORDERED: POTASSIUM Cl (KCl) 100 ML IV SCH (16:00)
[2018-05-24] MEDS: ACETAMINOPHEN 325 MG TAB PO PRN (16:17)
[2018-05-24] MEDS: PIPERACILLIN/TAZO 2.25 GM/DEX 50 ML IV SCH ×2 (17:22→22:46)
[2018-05-24] MEDS: TPN 1 EA BAG IV SCH (21:25)
[2018-05-25] MEDS: PIPERACILLIN/TAZO 2.25 GM/DEX 50 ML IV SCH ×4 (04:28→23:16)
[2018-05-25] MEDS: HYDROmorphone HCL 0.5 MG/0.5 ML SYR IVP PRN ×2 (04:28→08:12)
[2018-05-25] MEDS: HEPARIN 5,000 UNIT/0.5 ML INJ SC SCH ×3 (05:57→21:10)
[2018-05-25 06:09] LABS: PLATELET COUNT 357 10^3/uL (150-400)
[2018-05-25 06:10] LABS: INR 1.25 (0.83-1.16); PROTIME(PATIENT) 15.9 SEC (12.0-15.0)
[2018-05-25] MEDS: DICYCLOMINE 10 MG CAP PO PRN (08:21)
[2018-05-25] MEDS ORDERED: NS 500 ML IV ONE (09:16)
--- NOTE | 2018-05-25 09:22 | SOAPPROG ---
SOAP Progress Note Assessment/Plan: Assessment/Plan: Doing well. Will keep NG in place until bowels wake up. Getting TPN. May continue with clear fluids PO as well as IV hydration. Remove carmen catheter. Cr 1.3 today- likely prerenal, NS bolus given. Wound care to cover Lionel drain - discussed with nursing. Potassium low normal- will supplement with 20mEq. Mg improved and in desired range. WBC slowly decreasing- likely inflammatory, continue with Zosyn. Encourage ambulation. Patient seen and evaluated with Dr. Adan. 05/25/18 11:39 Subjective: No overnight concerns. Pain managed well. No wound concerns. Has not yet ambulated. No flatus or BM. Drinking clear fluids. Objective: Vital Signs Temp Pulse Resp BP Pulse Ox 36.6 C 90 15 125/60 H 98 05/25/18 04:00 05/25/18 04:00 05/25/18 04:00 05/25/18 04:00 05/25/18 04:00 Laboratory Results 05/25/18 05:50 05/25/18 05:50 05/24/18 05/25/18 05/26/18 05:59 05:59 05:59 Intake Total 4655 3059 Output Total 900 2100 Balance 3755 959 PT 15.9 SEC (12.0-15.0) H 05/25/18 05:50 INR 1.25 (0.83-1.16) H 05/25/18 05:50 Physical Exam: Gen: appears comfortable, afebrile HEENT: NG tube in place, 600cc out overnight Skin: normal Abdomen: soft, distended, appropriate tenderness. Incisions clean without erythema, Lionel drain in place Extremities: trace edema bilateral WBC: 23 Cr: 1.3 K+: 3.6 M.3 ICD10 Worksheet Patient Problems: Problems Problem Status Onset Small bowel obstruction Acute Volvulus of small intestine Acute
[2018-05-25] MEDS ORDERED: HYDROmorphone HCL 0.5 MG/0.5 ML SYR IVP PRN (09:51)
[2018-05-25] MEDS: METOPROLOL TARTRATE 50 MG TAB PO SCH ×3 (10:09→21:08)
[2018-05-25] MEDS: LISINOPRIL 20 MG TAB PO SCH (10:11)
[2018-05-25] MEDS: HYDROCODONE/APAP 5/325 TAB PO PRN (10:56)
[2018-05-25] MEDS ORDERED: POTASSIUM CL 20 MEQ/15 ML UDCUP PO ONE (11:41)
--- NOTE | 2018-05-25 14:24 | ASMTCMCOM ---
CM Note CM Note Notes: Pt reported to be doing well. An NG will stay in place until her bowels wake up. Turner catheter will be removed. Ambulation is being encouraged. CM to follow. D/C Plan: [facility] for PT/OT. Unskilled. Date Signed: 05/25/2018 02:23 PM Electronically Signed By:Kaylin Narvaez
[2018-05-25] MEDS: HYDROmorphONE/DILAUDID 1 MG/ML INJ IVP PRN ×2 (15:44→23:16)
[2018-05-25] MEDS: oxyCODONE IR 5 MG TAB PO PRN (21:08)
[2018-05-25] MEDS: TPN 1 EA BAG IV SCH (21:10)
[2018-05-26] MEDS: HYDROmorphONE/DILAUDID 1 MG/ML INJ IVP PRN ×2 (05:11→20:25)
[2018-05-26] MEDS: HEPARIN 5,000 UNIT/0.5 ML INJ SC SCH ×3 (05:12→22:49)
[2018-05-26] MEDS: PIPERACILLIN/TAZO 2.25 GM/DEX 50 ML IV SCH ×4 (05:12→22:49)
[2018-05-26] MEDS: LR 1,000 ML IV SCH (05:12)
[2018-05-26 05:39] LABS: PLATELET COUNT 372 10^3/uL (150-400)
[2018-05-26 05:45] LABS: INR 1.07 (0.83-1.16); PROTIME(PATIENT) 14.1 SEC (12.0-15.0)
[2018-05-26] MEDS: LISINOPRIL 20 MG TAB PO SCH (08:34)
[2018-05-26] MEDS: METOPROLOL TARTRATE 50 MG TAB PO SCH ×3 (08:34→22:49)
[2018-05-26] MEDS ORDERED: POTASSIUM CL 20 MEQ/15 ML UDCUP PO SCH (09:00)
[2018-05-26] MEDS ORDERED: POTASSIUM CL 20 MEQ TAB PO SCH (09:00)
--- NOTE | 2018-05-26 09:53 | SOAPPROG ---
SOAP Progress Note Assessment/Plan: Assessment/Plan: Postop day 9/. Status post laparotomy small-bowel resection for obstruction return to the OR for dehiscence and washout (repair with component separation/ strattice placement). Had enterotomies repaired with small-bowel resection concurrently. Feeling better today. On TPN. NG tube with serobilious output. pain controlled with oral and IV medication afebrile. VSS. alert, comfortable. abd dist, soft. dressing with some serous drainage from the [place]. ext no edema. WBC 13 K - leukemoid reaction versus intra-abdominal infection, supportive care , cont zosyn - will stop in the next few days. 05/26/18 09:41 Objective: Vital Signs Temp Pulse Resp BP Pulse Ox 36.9 C 79 13 167/56 H 88 L 05/26/18 08:00 05/26/18 08:34 05/26/18 08:00 05/26/18 08:34 05/26/18 08:00 Laboratory Results 05/26/18 05:00 05/26/18 05:30 05/25/18 05/26/18 05/27/18 05:59 05:59 05:59 Intake Total 3059 2841 Output Total 2100 3580 350 Balance 959 -739 -350 PT 14.1 SEC (12.0-15.0) 05/26/18 05:28 INR 1.07 (0.83-1.16) 05/26/18 05:28 ICD10 Worksheet Patient Problems: Problems Problem Status Onset Small bowel obstruction Acute Volvulus of small intestine Acute
[2018-05-26] MEDS: traMADol 50 MG TAB PO PRN (12:18)
[2018-05-26] MEDS: TPN 1 EA BAG IV SCH (20:58)
[2018-05-27] MEDS: PIPERACILLIN/TAZO 2.25 GM/DEX 50 ML IV SCH ×3 (05:07→16:38)
[2018-05-27] MEDS: HYDROmorphONE/DILAUDID 1 MG/ML INJ IVP PRN ×3 (05:07→20:49)
[2018-05-27] MEDS: HEPARIN 5,000 UNIT/0.5 ML INJ SC SCH ×3 (05:12→20:48)
[2018-05-27] MEDS ORDERED: CALCIUM GLUCONATE 50 ML IV ONE (08:06)
[2018-05-27] MEDS ORDERED: NS 500 ML IV ONE (08:09)
--- NOTE | 2018-05-27 08:13 | SOAPPROG ---
SOAP Progress Note Assessment/Plan: Assessment/Plan: POD#10/3 doing better this am no longer in bigeminy. ngt advanced 800 out. jaimie seropurulent drainage OOB Continue TPN (add calcium) Contraction alkalosis 500 NS bolus Encourage oob await ileus resolution Postop day 9/2. Status post laparotomy small-bowel resection for obstruction return to the OR for dehiscence and washout (repair with component separation/ strattice placement). Had enterotomies repaired with small-bowel resection concurrently. Feeling better today. On TPN. NG tube with serobilious output. pain controlled with oral and IV medication afebrile. VSS. alert, comfortable. abd dist, soft. dressing with some serous drainage from the [place]. ext no edema. WBC 12 K - leukemoid reaction versus intra-abdominal infection, supportive care , cont zosyn - will stop in the next few days. 05/26/18 09:41 05/27/18 08:10 Objective: Vital Signs Temp Pulse Resp BP Pulse Ox 36.6 C 75 20 164/82 H 97 05/27/18 04:45 05/27/18 04:45 05/27/18 04:45 05/27/18 04:45 05/27/18 04:45 Laboratory Results 05/26/18 20:05 05/26/18 20:05 05/26/18 05/27/18 05/28/18 05:59 05:59 05:59 Intake Total 2841 2744 Output Total 3580 3380 Balance -739 -636 PT 14.1 SEC (12.0-15.0) 05/26/18 05:28 INR 1.07 (0.83-1.16) 05/26/18 05:28 ICD10 Worksheet Patient Problems: Problems Problem Status Onset Small bowel obstruction Acute Volvulus of small intestine Acute
[2018-05-27] MEDS ORDERED: CALCIUM GLUCONATE 1 GM in D5W 50 ML IV ONE (08:30)
[2018-05-27] MEDS: METOPROLOL TARTRATE 50 MG TAB PO SCH ×3 (08:38→21:06)
[2018-05-27] MEDS: LISINOPRIL 20 MG TAB PO SCH (08:38)
--- NOTE | 2018-05-27 11:24 | ASMTCMCOM ---
CM Note CM Note Notes: Pt had second surgery, she still has an NG tube and is getting TPN, PT recommending SNF at this point, OT eval still pending. CM to follow, pt set up with [facility] (RN,PT), dc date uncertain. DC Plan: TBD Date Signed: 05/27/2018 11:23 AM Electronically Signed By:Yamini Contreras RN
[2018-05-27] MEDS: TPN 1 EA BAG IV SCH (20:50)
[2018-05-27] MEDS: LR 1,000 ML IV SCH (20:58)
[2018-05-28] MEDS: PIPERACILLIN/TAZO 2.25 GM/DEX 50 ML IV SCH ×5 (00:01→22:06)
[2018-05-28] MEDS: ACETAMINOPHEN 325 MG TAB PO PRN (01:37)
[2018-05-28] MEDS: oxyCODONE IR 5 MG TAB PO PRN ×2 (04:10→16:17)
[2018-05-28] MEDS: HEPARIN 5,000 UNIT/0.5 ML INJ SC SCH ×3 (05:57→21:04)
[2018-05-28 06:23] LABS: PLATELET COUNT 331 10^3/uL (150-400)
[2018-05-28 06:38] LABS: INR 1.33 (0.83-1.16); PROTIME(PATIENT) 16.7 SEC (12.0-15.0)
[2018-05-28] MEDS ORDERED: MAGNESIUM SULF 2 GM/WATER 50 ML IV ONE ×2 (07:56→07:57)
[2018-05-28] MEDS ORDERED: D50W 25 GM/50 ML SYR IVP PRN (07:59)
--- NOTE | 2018-05-28 08:01 | SOAPPROG ---
SOAP Progress Note Assessment/Plan: Assessment: pod#11/5 s/p SBR/wound dehiscence repair with component separation/ strattice placement. no overnight issues. small BM per staff. small flatus per patient. c/o incisional tightness. afebrile. 160/80 80 15. alert, no distress, comfortable. abd distention decreased. incision clean. jaimie intact with appropriate serous drainage. WBC 11. Hb 7.5. K 3.5. Mg 1.5. Ca 6.8 (alb 1.8). trial NG clamp today. cont TPN. lyte replacement (k/mg/TPN). SSI for BG management. PT/OT. cont zosyn until WBC normalizes - prob leukemoid rxn. cont sq heparin. care plan reviewed with patient and nursing staff at bedside. meds reviewed with pharm. Plan: 05/23/18 16:35 05/23/18 20:19 05/24/18 08:08 05/24/18 08:09 05/28/18 08:00 05/28/18 08:01 05/28/18 08:03 Objective: Vital Signs Temp Pulse Resp BP Pulse Ox 36.7 C 84 15 162/80 H 94 05/28/18 04:00 05/28/18 04:00 05/28/18 04:00 05/28/18 04:00 05/28/18 04:00 Laboratory Results 05/28/18 06:00 05/28/18 06:00 05/27/18 05/28/18 05/29/18 05:59 05:59 05:59 Intake Total 6565 3502 Output Total 1100 3025 Balance -636 477 PT 16.7 SEC (12.0-15.0) H 05/28/18 06:00 INR 1.33 (0.83-1.16) H 05/28/18 06:00 ICD10 Worksheet Patient Problems: Problems Problem Status Onset Small bowel obstruction Acute Volvulus of small intestine Acute
[2018-05-28] MEDS: POTASSIUM CL 20 MEQ/15 ML UDCUP PO SCH (08:52)
[2018-05-28] MEDS: METOPROLOL TARTRATE 50 MG TAB PO SCH ×3 (08:53→21:01)
[2018-05-28] MEDS: HYDROCHLOROTHIAZIDE 25 MG TAB PO SCH (08:54)
[2018-05-28] MEDS: LISINOPRIL 20 MG TAB PO SCH (08:54)
[2018-05-28] MEDS: HYDROCODONE/APAP 5/325 TAB PO PRN (08:54)
[2018-05-28] MEDS: INSULIN REGULAR HUMAN 100 UNIT/ML UNIT SC SCH ×3 (13:14→21:04)
[2018-05-28] MEDS: HYDROmorphONE/DILAUDID 1 MG/ML INJ IVP PRN ×2 (13:31→21:02)
--- NOTE | 2018-05-28 14:19 | ASMTCMCOM ---
CM Note CM Note Notes: CM met with pt and her . They were told PT is recommending SNF rehab. They agree and requested [facility] as they live in [facility]. A referral will be sent in. of pt asked for an opportunity to speak with his 's doctor; a message was sent to Dr Miranda with 's contact information. CM to follow. D/C Plan: SNF Date Signed: 05/28/2018 02:19 PM Electronically Signed By:Kaylin Narvaez
[2018-05-28] MEDS: DICYCLOMINE 10 MG CAP PO PRN (14:46)
[2018-05-28] MEDS: traMADol 50 MG TAB PO PRN (17:51)
[2018-05-28] MEDS: TPN 1 EA BAG IV SCH (21:05)
[2018-05-29] MEDS: ACETAMINOPHEN 325 MG TAB PO PRN (00:32)
[2018-05-29] MEDS: PIPERACILLIN/TAZO 2.25 GM/DEX 50 ML IV SCH ×4 (04:36→22:03)
[2018-05-29] MEDS: HYDROmorphONE/DILAUDID 1 MG/ML INJ IVP PRN ×4 (04:36→21:46)
[2018-05-29] MEDS: HEPARIN 5,000 UNIT/0.5 ML INJ SC SCH ×3 (04:38→22:04)
[2018-05-29] MEDS: LISINOPRIL 20 MG TAB PO SCH (08:19)
[2018-05-29] MEDS: METOPROLOL TARTRATE 50 MG TAB PO SCH ×3 (08:20→21:59)
[2018-05-29] MEDS: HYDROCHLOROTHIAZIDE 25 MG TAB PO SCH (08:20)
[2018-05-29] MEDS: INSULIN REGULAR HUMAN 100 UNIT/ML UNIT SC SCH ×4 (08:21→22:02)
[2018-05-29] MEDS: POTASSIUM CL 20 MEQ/15 ML UDCUP PO SCH (08:21)
[2018-05-29] MEDS: IBUPROFEN 600 MG TAB PO PRN (08:28)
--- NOTE | 2018-05-29 09:00 | SOAPPROG ---
SOAP Progress Note Assessment/Plan: Assessment: pod#12/6 s/p SBR/wound dehiscence repair with component separation/ strattice placement. no overnight issues. min flatus. unable to tolerate NG clamp yesterday. afebrile. VSS. alert, no distress, comfortable. abd distended. LLQ incisional tenderness. incisions clean, no erythema. jaimie intact with appropriate serous drainage. Labs pending. cont TPN. Cont NG - await return GI function. lyte replacement PRN. SSI for BG management. PT/OT. cont zosyn until WBC normalizes. cont sq heparin. no new issues at this time. Plan: 05/23/18 16:35 05/23/18 20:19 05/24/18 08:08 05/24/18 08:09 05/28/18 08:00 05/28/18 08:01 05/28/18 08:03 05/29/18 08:58 Objective: Vital Signs Temp Pulse Resp BP Pulse Ox 36.3 C 94 18 160/80 H 94 05/29/18 07:38 05/29/18 08:20 05/29/18 07:38 05/29/18 08:20 05/29/18 07:38 Laboratory Results 05/28/18 06:00 05/28/18 06:00 05/28/18 05/29/18 05/30/18 05:59 05:59 05:59 Intake Total 3502 3454 Output Total 3025 4850 Balance 477 -1396 PT 16.7 SEC (12.0-15.0) H 05/28/18 06:00 INR 1.33 (0.83-1.16) H 05/28/18 06:00 ICD10 Worksheet Patient Problems: Problems Problem Status Onset Small bowel obstruction Acute Volvulus of small intestine Acute
[2018-05-29] MEDS: POTASSIUM Cl (KCl) 100 ML IV SCH ×4 (12:34→16:26)
[2018-05-29] MEDS: traMADol 50 MG TAB PO PRN (15:07)
[2018-05-29] MEDS: TPN 1 EA BAG IV SCH (21:47)
[2018-05-30] MEDS: HYDROmorphONE/DILAUDID 1 MG/ML INJ IVP PRN ×5 (02:28→20:53)
[2018-05-30] MEDS: PIPERACILLIN/TAZO 2.25 GM/DEX 50 ML IV SCH ×2 (05:32→12:35)
[2018-05-30] MEDS: HEPARIN 5,000 UNIT/0.5 ML INJ SC SCH (05:33)
[2018-05-30] MEDS: INSULIN REGULAR HUMAN 100 UNIT/ML UNIT SC SCH ×4 (08:49→20:36)
[2018-05-30] MEDS: POTASSIUM CL 20 MEQ/15 ML UDCUP PO SCH (08:58)
[2018-05-30] MEDS: LISINOPRIL 20 MG TAB PO SCH (08:58)
[2018-05-30] MEDS: traMADol 50 MG TAB PO PRN ×2 (08:59→17:59)
[2018-05-30] MEDS: METOPROLOL TARTRATE 50 MG TAB PO SCH ×3 (09:00→22:03)
[2018-05-30] MEDS: HYDROCHLOROTHIAZIDE 25 MG TAB PO SCH (09:01)
--- NOTE | 2018-05-30 09:01 | SOAPPROG ---
<EmilymarleenEmily - Last Filed: 05/30/18 09:10> SOAP Progress Note Assessment/Plan: Assessment/Plan: Doing well. Will trial NG tube clamp this am. Discussed returning to suction with nursing if patient has worsening nausea or abdominal pain. Getting TPN. Clear fluids ok. Electrolytes stable. WBC 14 yesterday. Will repeat CBC today before d/c Zosyn. Encourage ambulation. Patient seen and evaluated with Dr. Miranda. 05/30/18 09:01 Subjective: POD #13 s/p small bowel resection and wound revision. Overall felling better this morning. Small bowel movement last night. Having flatus. Minimal left lower abdominal pain. No urinary complaints. Ambulating in the halls. Objective: Vital Signs Temp Pulse Resp BP Pulse Ox 36.7 C 98 16 160/79 H 95 05/30/18 08:17 05/30/18 08:17 05/30/18 08:17 05/30/18 08:17 05/30/18 08:17 Laboratory Results 05/29/18 10:30 05/30/18 05:29 05/29/18 05/30/18 05/31/18 05:59 05:59 05:59 Intake Total 3454 3158.6 350 Output Total 4850 4250 300 Balance -1396 -1091.4 50 PT 16.7 SEC (12.0-15.0) H 05/28/18 06:00 INR 1.33 (0.83-1.16) H 05/28/18 06:00 Physical exam: Gen: appears comfortable, afebrile, A&O x3 HEENT: eyes appear more alert today, NGT in place right nare Skin: normal Abdomen: Soft, improving distension, mild LLQ tenderness, incisions clean without erythema, [place] with minimal sanguineous drainage Extremities: no edema ICD10 Worksheet Patient Problems: Problems Problem Status Onset Small bowel obstruction Acute Volvulus of small intestine Acute <Zeke Miranda - Last Filed: 05/30/18 16:54> SOAP Progress Note Assessment/Plan: Assessment: CT ordered because of increasing WBC. pelvic fluid collection with some wall enhancement albeit incomplete. tolerating NG clamp. discussed CT findings. will continue zosyn for now. unclear if postop collection or evolving abscess. if spikes fevers or WBC continues to climb, will need CT aspiration. Plan: 05/30/18 16:49 Objective: Vital Signs Temp Pulse Resp BP Pulse Ox 36.3 C 98 16 141/73 H 98 05/30/18 16:00 05/30/18 16:00 05/30/18 16:00 05/30/18 16:00 05/30/18 16:00 Laboratory Results 05/30/18 10:00 05/30/18 05:29 05/29/18 05/30/18 05/31/18 05:59 05:59 05:59 Intake Total 3454 3158.6 650 Output Total 4850 4250 700 Balance -1396 -1091.4 -50 PT 16.7 SEC (12.0-15.0) H 05/28/18 06:00 INR 1.33 (0.83-1.16) H 05/28/18 06:00
[2018-05-30 10:30] LABS: PLATELET COUNT 530 10^3/uL (150-400)
[2018-05-30] MEDS ORDERED: SODIUM BICARBONATE 150 MEQ in D5W 1,000 ML IV SCH (12:30)
[2018-05-30] MEDS: ENOXAPARIN 40 MG/0.4 ML SYR SC SCH (13:59)
--- NOTE | 2018-05-30 13:59 | ASMTCMCOM ---
CM Note CM Note Notes: Chart reviewed. Sharri has had a lengthy hospital course with small bowel resection and secondary surgery. Met with patient and last night to reassure them regarding plan to [facility]. NG tube clamped this am but patient developed nausea. Worked with PT up walking in [place], ambulation encouraged. CM to follow. Plan: To [facility] when medically cleared to go. Date Signed: 05/30/2018 01:58 PM Electronically Signed By:Lisy Rea RN
[2018-05-30] MEDS ORDERED: IOPAMIDOL (ISOVUE-300) 100 ML BTL ONE (14:05)
[2018-05-30] MEDS: PIPERACILLIN/TAZO 3.375 GM/DEX 50 ML IV SCH (17:37)
[2018-05-30] MEDS: TPN 1 EA BAG IV SCH (20:46)
[2018-05-31] MEDS: PIPERACILLIN/TAZO 3.375 GM/DEX 50 ML IV SCH ×4 (00:30→17:55)
[2018-05-31] MEDS: HYDROmorphONE/DILAUDID 1 MG/ML INJ IVP PRN ×3 (04:25→21:53)
[2018-05-31] MEDS: INSULIN REGULAR HUMAN 100 UNIT/ML UNIT SC SCH ×4 (09:09→20:38)
[2018-05-31] MEDS: oxyCODONE IR 5 MG TAB PO PRN ×2 (09:14→16:45)
[2018-05-31] MEDS: POTASSIUM CL 20 MEQ/15 ML UDCUP PO SCH (09:32)
[2018-05-31] MEDS: LISINOPRIL 20 MG TAB PO SCH (09:33)
[2018-05-31] MEDS: HYDROCHLOROTHIAZIDE 25 MG TAB PO SCH (09:34)
[2018-05-31] MEDS: METOPROLOL TARTRATE 50 MG TAB PO SCH ×3 (09:34→21:54)
[2018-05-31] MEDS: ENOXAPARIN 40 MG/0.4 ML SYR SC SCH (09:50)
[2018-05-31 12:09] LABS: INR 1.14 (0.83-1.16); PROTIME(PATIENT) 14.8 SEC (12.0-15.0)
[2018-05-31] MEDS ORDERED: LIDOCAINE 1% 300 MG/30 ML SDV ONE (13:38)
[2018-05-31] MEDS ORDERED: FLUMAZENIL 0.5 MG/5 ML MDV IVP ONE (13:46)
[2018-05-31] MEDS ORDERED: MIDAZOLAM 2 MG/2 ML VIAL ONE (13:47)
[2018-05-31] MEDS ORDERED: fentaNYL 100 MCG/2 ML INJ ONE (13:47)
[2018-05-31] MEDS ORDERED: MIDAZOLAM 2 MG/2 ML VIAL IVP PRN ×2 (13:48→15:09)
[2018-05-31] MEDS ORDERED: FLUMAZENIL 0.5 MG/5 ML MDV IVP PRN ×2 (13:48→15:09)
[2018-05-31] MEDS ORDERED: NALOXONE HCL 0.4 MG/ML INJ IVP PRN ×2 (13:48→15:09)
[2018-05-31] MEDS ORDERED: fentaNYL 100 MCG/2 ML INJ IVP PRN ×2 (13:48→15:09)
[2018-05-31] MEDS ORDERED: MEPERIDINE 25 MG/ML SYR IVP PRN (13:48)
[2018-05-31] MEDS ORDERED: NS 1,000 ML IV SCH (14:00)
--- NOTE | 2018-05-31 14:54 | PDRADPN ---
Radiology Procedure Note Date of Procedure: 05/31/18 Radiologist: Nava Garrison Anesthesia: IV Sedation Pre-op Diagnosis: pelvic collection Post-op Diagnosis: same Procedure: ct guided drainage Inf/Abcess present in the surg proc area at time of surgery?: Yes Depth: Deep Incisional (Fascial)
--- NOTE | 2018-05-31 14:54 | PDPROPOC ---
Sedation Plan of Care ASA Classification: ASA 2 Mallampati Score: Class 2 Mallampati Reference Image:
[2018-05-31] MEDS ORDERED: ALTEPLASE 2 MG VIAL IVP PRN (15:09)
--- NOTE | 2018-05-31 15:58 | ASMTCMCOM ---
CM Note CM Note Notes: Patient had CT of abdomen that shows possible fluid collection/ abscess Plan of care remains unclear at this time. CM to follow for needs. Plan was originally to go to [facility] when medically stable. Plan: TBD Date Signed: 05/31/2018 03:58 PM Electronically Signed By:Lisy Rea RN
--- NOTE | 2018-05-31 17:25 | SOAPPROG ---
SOAP Progress Note Assessment/Plan: Assessment/Plan: CT guided pelvic fluid drainage today due to progressively increasing WBC count. Clinically she is doing well. Tolerating NG clamp. Getting TPN. Clear fluids ok. Electrolytes stable. WBC 18. Continue Zosyn. Repeat CBC in am. Patient seen and evaluated with Dr. Miranda. 05/31/18 17:30 Subjective: POD #13 s/p SBR and compartment separation. Having flatus. Was incontinent of loose BM last night. Crampy abdominal pain in LLQ. Continues to feel bloated. No nausea. Tolerating clears well with NG clamped. No urinary complaints. No fever or chills. Objective: Vital Signs Temp Pulse Resp BP Pulse Ox 36.7 C 74 16 141/63 H 98 05/31/18 15:00 05/31/18 16:30 05/31/18 16:30 05/31/18 16:30 05/31/18 16:30 Laboratory Results 05/31/18 11:50 05/31/18 11:50 05/30/18 05/31/18 06/01/18 05:59 05:59 05:59 Intake Total 3158.6 1550 Output Total 4250 3450 450 Balance -1091.4 -1900 -450 PT 14.8 SEC (12.0-15.0) 05/31/18 11:50 INR 1.14 (0.83-1.16) 05/31/18 11:50 Physical Exam: Gen: appears comfortable, afebrile HEENT: NG in right nare- clamped Skin: normal Abdomen: soft, distended, LLQ tenderness with palpation. No rebound or guarding. Incisions clean without erythema, [place] drain low midline incision Extremities: unremarkable ICD10 Worksheet Patient Problems: Problems Problem Status Onset Small bowel obstruction Acute Volvulus of small intestine Acute
[2018-05-31] MEDS: TPN 1 EA BAG IV SCH (21:11)
[2018-06-01] MEDS: PIPERACILLIN/TAZO 3.375 GM/DEX 50 ML IV SCH ×5 (00:22→23:34)
[2018-06-01 04:36] LABS: PLATELET COUNT 479 10^3/uL (150-400)
[2018-06-01] MEDS: oxyCODONE IR 5 MG TAB PO PRN ×3 (04:44→18:44)
[2018-06-01] MEDS: HYDROCODONE/APAP 5/325 TAB PO PRN ×2 (06:30→21:48)
[2018-06-01] MEDS: POTASSIUM CL 20 MEQ/15 ML UDCUP PO SCH (08:25)
[2018-06-01] MEDS: METOPROLOL TARTRATE 50 MG TAB PO SCH ×3 (08:25→21:45)
[2018-06-01] MEDS: LISINOPRIL 20 MG TAB PO SCH (08:26)
[2018-06-01] MEDS: HYDROCHLOROTHIAZIDE 25 MG TAB PO SCH (08:26)
[2018-06-01] MEDS: ENOXAPARIN 40 MG/0.4 ML SYR SC SCH (08:26)
[2018-06-01] MEDS: INSULIN REGULAR HUMAN 100 UNIT/ML UNIT SC SCH ×4 (08:35→22:35)
[2018-06-01] MEDS ORDERED: BUPIVACAINE 0.25% 30 ML SDV ONE (09:17)
[2018-06-01] MEDS ORDERED: HYDROCODONE/APAP 5/325 TAB ONE (12:03)
[2018-06-01] MEDS: ACETAMINOPHEN 325 MG TAB PO PRN (13:03)
--- NOTE | 2018-06-01 13:23 | ASMTCMCOM ---
CM Note CM Note Notes: Patient chart reviewed. She is up walking. NG has been removed. Slowly progressing. CM to follow. Plan: To [facility] upon discharge. Date Signed: 06/01/2018 01:22 PM Electronically Signed By:Lisy Rea RN
--- NOTE | 2018-06-01 14:44 | SOAPPROG ---
SOAP Progress Note Assessment/Plan: Assessment:good night. feeling better. no nausea. ongoing flatus. avss. comfortable. abd soft, dist. incis clean. 1/2 mike removed. drain serous. jaimie serous. wbc 13. hb 6.5. improving. cont zosyn pending cultures - will stop if neg this weekend. cont TPN until tomorrow - anticipate dc TPN after tonights bag. asympt anemia - multifactorial (phlebotomy, dilution, malnutrition, chronic illness), no concern for bleed at this time, observation appropriate. care plan reviewed with patient and . rehab planning - anticipate next week barring any new concerns. Plan: 05/30/18 16:49 06/01/18 14:39 Objective: Vital Signs Temp Pulse Resp BP Pulse Ox 36.3 C 65 18 99/44 L 100 06/01/18 12:15 06/01/18 12:15 06/01/18 12:15 06/01/18 12:15 06/01/18 12:15 Microbiology 05/31/18 14:25 Gram Stain - Final Pelvis - Aspirate Laboratory Results 06/01/18 04:05 06/01/18 04:05 05/31/18 06/01/18 06/02/18 05:59 05:59 05:59 Intake Total 1550 Output Total 3450 1151 Balance -1900 -1151 PT 14.8 SEC (12.0-15.0) 05/31/18 11:50 INR 1.14 (0.83-1.16) 05/31/18 11:50 ICD10 Worksheet Patient Problems: Problems Problem Status Onset Small bowel obstruction Acute Volvulus of small intestine Acute
[2018-06-01] MEDS: TPN 1 EA BAG IV SCH (21:44)
[2018-06-02] MEDS: PIPERACILLIN/TAZO 3.375 GM/DEX 50 ML IV SCH ×3 (05:16→19:37)
[2018-06-02] MEDS: INSULIN REGULAR HUMAN 100 UNIT/ML UNIT SC SCH ×2 (07:52→09:04)
[2018-06-02] MEDS: traMADol 50 MG TAB PO PRN ×2 (07:52→20:48)
[2018-06-02] MEDS: LISINOPRIL 20 MG TAB PO SCH (07:53)
[2018-06-02] MEDS: HYDROCHLOROTHIAZIDE 25 MG TAB PO SCH (07:53)
[2018-06-02] MEDS: METOPROLOL TARTRATE 50 MG TAB PO SCH ×3 (07:53→20:49)
[2018-06-02] MEDS: ENOXAPARIN 40 MG/0.4 ML SYR SC SCH (07:54)
[2018-06-02] MEDS: POTASSIUM CL 20 MEQ/15 ML UDCUP PO SCH (07:54)
--- NOTE | 2018-06-02 09:14 | SOAPPROG ---
SOAP Progress Note Assessment/Plan: Assessment:no issues. no nausea. appetite slowly returning. avss. abd soft. incis clean. less LLQ trocar site tenderness. jaimie removed. MORIS serous. cx NTD. wbc 12. hb 7.4. excellent progress. stop tpn today. await final cx results - if remain neg, dc drain and zosyn tomorrow. poss rehab planning for mon/monday. patient pleased with her progress. Plan: 05/30/18 16:49 06/01/18 14:39 06/02/18 09:12 Objective: Vital Signs Temp Pulse Resp BP Pulse Ox 36.3 C 71 16 163/62 H 91 L 06/02/18 07:41 06/02/18 07:53 06/02/18 07:41 06/02/18 07:53 06/02/18 07:41 Microbiology 05/31/18 14:25 Gram Stain - Final Pelvis - Aspirate Laboratory Results 06/02/18 05:15 06/01/18 04:05 06/01/18 06/02/18 06/03/18 05:59 05:59 05:59 Intake Total 3817 Output Total 1151 1250 175 Balance -1151 2567 -175 PT 14.8 SEC (12.0-15.0) 05/31/18 11:50 INR 1.14 (0.83-1.16) 05/31/18 11:50 ICD10 Worksheet Patient Problems: Problems Problem Status Onset Small bowel obstruction Acute Volvulus of small intestine Acute
[2018-06-02] MEDS: HYDROCODONE/APAP 5/325 TAB PO PRN (12:41)
[2018-06-03] MEDS: PIPERACILLIN/TAZO 3.375 GM/DEX 50 ML IV SCH ×2 (00:29→05:25)
[2018-06-03] MEDS: HYDROCODONE/APAP 5/325 TAB PO PRN ×5 (00:29→23:02)
--- NOTE | 2018-06-03 07:38 | SOAPPROG ---
SOAP Progress Note Assessment/Plan: Assessment:good night. no complaint. appetite improving. avss. abd soft, dist markedly decreased. francesca serous. incis clean. wbc 10. doing very well. cx NTG - drain removed. mike removed. stop zosyn. poss [facility]? Plan: 05/30/18 16:49 06/01/18 14:39 06/02/18 09:12 06/03/18 07:36 Objective: Vital Signs Temp Pulse Resp BP Pulse Ox 36.3 C 69 18 147/55 H 98 06/03/18 04:00 06/03/18 04:00 06/03/18 04:00 06/03/18 04:00 06/03/18 04:00 Microbiology 05/31/18 14:25 Gram Stain - Final Pelvis - Aspirate Laboratory Results 06/03/18 05:30 06/01/18 04:05 06/02/18 06/03/18 06/04/18 05:59 05:59 05:59 Intake Total 3817 1850 Output Total 1250 195 Balance 2567 1655 PT 14.8 SEC (12.0-15.0) 05/31/18 11:50 INR 1.14 (0.83-1.16) 05/31/18 11:50 ICD10 Worksheet Patient Problems: Problems Problem Status Onset Small bowel obstruction Acute Volvulus of small intestine Acute
[2018-06-03] MEDS: ENOXAPARIN 40 MG/0.4 ML SYR SC SCH (10:57)
[2018-06-03] MEDS: HYDROCHLOROTHIAZIDE 25 MG TAB PO SCH (10:58)
[2018-06-03] MEDS: LISINOPRIL 20 MG TAB PO SCH (10:58)
[2018-06-03] MEDS: METOPROLOL TARTRATE 50 MG TAB PO SCH ×3 (10:58→22:58)
[2018-06-04] MEDS: HYDROCODONE/APAP 5/325 TAB PO PRN (05:25)
[2018-06-04] MEDS: HYDROCHLOROTHIAZIDE 25 MG TAB PO SCH (09:16)
[2018-06-04] MEDS: ENOXAPARIN 40 MG/0.4 ML SYR SC SCH (09:21)
[2018-06-04] MEDS: LISINOPRIL 20 MG TAB PO SCH (09:21)
[2018-06-04] MEDS: METOPROLOL TARTRATE 50 MG TAB PO SCH (09:21)
[2018-06-04] MEDS: ACETAMINOPHEN 325 MG TAB PO PRN (09:22)
--- NOTE | 2018-06-04 09:59 | PDIAF ---
<Emily Soriano - Last Filed: 06/04/18 10:17> - Diagnosis Diagnosis: Small bowel obstruction Code Status: Full Code - Medication Management Discharge Medications: Medications to Continue on Transfer Lisinopril/Hydrochlorothiazide [Zestoretic 20-25 mg Tablet] 1 each PO DAILY [Last Taken 05/16/18] Metoprolol Tartrate [Lopressor 100 mg (*)] 100 mg PO TID 12/24/13 [Last Taken ] hydrALAZINE [Apresoline 50 mg (*)] 50 mg PO BID 12/24/13 [Last Taken 05/16/18] Naproxen Sodium [Aleve 220 MG (*)] 220 mg PO BID PRN 05/16/18 [Last Taken Unknown] Acetaminophen [Tylenol 325mg (*)] 650 mg PO Q4HRS PRN tab 05/20/18 [Last Taken Unknown] Hydrocodone/APAP 5/325 [[place] 5/325 (*)] 1 - 2 tab PO Q4HRS PRN #20 tab [Last Taken Unknown] Ibuprofen [Motrin (*)] 600 mg PO QID PRN tab 05/20/18 [Last Taken Unknown] Ibuprofen [Motrin (*)] 600 mg PO Q6H PRN tab 06/04/18 [Last Taken Unknown] Discharge Medications: Refer to the Discharge Home Medication list for PRN reason. PICC Care - Routine: N/A - Orders Services needed: Registered Nurse, Physical Therapy, Occupational Therapy Diet Recommendation: no restrictions on diet Diet Texture: Regular Texture Diet Wound Care Instructions: Cover lower midline wound prior drain site with dry gauze prn. Shower with soap and water prn. Activity/Weight Bearing Restrictions: No activity restrictions. Additional Instructions: may shower. no tub. no lifting >30 pounds x2 weeks. no driving until pain free. call for fevers, chills, worsening pain, wound questions, any other concerns. - Follow Up Care Current Providers and Referrals: Eleanor Swan MD [Primary Care Provider] - As per Instructions Zeke Miranda MD [Medical Doctor] - follow up in 2 weeks <Zeke Miranda - Last Filed: 06/05/18 16:14> - Medication Management Discharge Medications: Refer to the Discharge Home Medication list for PRN reason.
--- NOTE | 2018-06-04 10:28 | ASMTLACE ---
LACE Length of stay for Answers: 14 days or more current admission Acuity / Level of Answers: Yes Care: Did the patient have an inpatient admission? Comorbidities - select Answers: Any tumor (including all that apply lymphoma or leukemia) Coronary Artery Disease Opioid dependence / Chronic pain Other Notes: HTN # of Emergency department Answers: 1-2 visits in the last 6 months Score: 20 Date Signed: 06/04/2018 10:28 AM Electronically Signed By:Lauren Pacheco
--- NOTE | 2018-06-04 10:43 | ASMTCMCOM ---
CM Note CM Note Notes: Patient has been medically cleared for discharge to SNF. She has been accepted by [facility], Final orders via allscripts. Patient to transfer via wheelchair van. to be informed. RN to call report to RN. CM available should other needs arise. Plan: DC to [facility] Date Signed: 06/04/2018 10:42 AM Electronically Signed By:Lisy Rea RN
[2018-06-04 12:51] VITALS: BP 118/55
[2018-06-04] MEDS: IBUPROFEN 600 MG TAB PO PRN (14:08)
--- NOTE | 2018-06-05 14:16 | GDS ---
DISCHARGE SUMMARY: 77-year-old female, well known to our practice, who presented to the ER for a small-bowel obstruction. She was initially managed with conservative therapy and an NG tube. She failed conservative therapy and subsequently underwent a small-bowel resection on May 17, 2018. She was tolerating clear diet and had no nausea or emesis. She had bowel movements and flatus. On May 24, she had a midline wound dehiscence for which she had an abdominal wound repair with retrorectus component separation and Strattice mesh placement. Several days postoperatively she had an elevation of white blood cell count, which CT scan revealed a pelvic fluid collection. She was placed on Zosyn and the fluid collection was drained using CT guidance by Interventional Radiology. A transgluteal MORIS drain was left in place with sanguineous fluid - final cultures showed no growth. Her abdominal pain and distention improved. She was tolerating p.o. diet well, having regular bowel movements and flatus. Her white blood cell count decreased to normal range. Prior to her discharge her MORIS drain was removed. She was discharged to [facility] on June 04 in good condition. No diet restrictions. No lifting greater than 30 pounds, otherwise activity as tolerated. Prescription provided for [facility]. She is to follow up in the office in 2 weeks. CURRENT HOME MEDICATIONS: Metoprolol, lisinopril, hydrochlorothiazide, hydralazine, naproxen. /[id number]/MODL MTDD
== END 2018-06-04 15:26 | DRG 330 ==
LOC: F1N 13:58 → OBSVTOIN 14:08
PROVIDERS: ADMIT Surgery; ATTEND Surgery
PROC: 0DB80ZZ Excision of Small Intestine, Open Approach (ICD-10-PCS; principal; 2018-05-16)
PROC: 0DN84ZZ Release Small Intestine, Percutaneous Endoscopic Approach (ICD-10-PCS; principal; 2018-05-16)
PROC: 0DQ80ZZ Repair Small Intestine, Open Approach (ICD-10-PCS; 2018-05-23)
PROC: 0DN80ZZ Release Small Intestine, Open Approach (ICD-10-PCS; 2018-05-23)
PROC: 0WUF0JZ Supplement Abdominal Wall with Synthetic Substitute, Open Approach (ICD-10-PCS; 2018-05-23)
PROC: 02H633Z Insertion of Infusion Device into Right Atrium, Percutaneous Approach (ICD-10-PCS; 2018-05-24)
PROC: 0W9J30Z Drainage of Pelvic Cavity with Drainage Device, Percutaneous Approach (ICD-10-PCS; 2018-05-31)
DX: K56.609 Unspecified intestinal obstruction, unspecified as to partial versus complete obstruction (principal); T81.31XA Disruption of external operation (surgical) wound, not elsewhere classified, initial encounter; Z53.31 Laparoscopic surgical procedure converted to open procedure; K66.0 Peritoneal adhesions (postprocedural) (postinfection); I10 Essential (primary) hypertension; Z23 Encounter for immunization; Z85.3 Personal history of malignant neoplasm of breast; Z85.00 Personal history of malignant neoplasm of unspecified digestive organ
CPT/HCPCS: 82435-PO; 82565-PO; 82947-PO; 84132-PO; 84295-PO; 84520-PO; 85014-PO; 96374; 97110-GO; 97110-GP; 97116-GP; 97161-GP; 97164-GP; 97165-GO; 97530-GO; 97530-GP; 97535-GO; C1751; C1765; G0008; G8978-GP-CJ; G8978-GP-CK; G8978-GP-CL; G8979-GP-CI; G8987-GO-CK; G8988-GO-CI; J0171; J0610; J0694; J1170; J1644; J1650; J1815; J1885; J2175; J2250; J2310; J2405; J2543; J2704; J3010; J3475; J3480; Q4130; Q9967

== ENCOUNTER 2018-06-15 12:22 | Inpatient (IN) | payer OTHER ==
[2018-06-15] MEDS ORDERED: NS 1,000 ML IV ONE (12:59)
--- NOTE | 2018-06-15 13:03 | EDPHY ---
H & P Stated Complaint: near syncope, pt was able to lower to ground- no loc, no fall Time Seen by Provider: 06/15/18 12:48 HPI/ROS: CHIEF COMPLAINT: Pre syncope HISTORY OF PRESENT ILLNESS: The patient is a 77-year-old female who comes to the emergency department after she stood up from sitting and started to use her walker and then felt lightheaded and had a let herself down to the ground. She did not fall or injure herself. She denies chest pain or shortness of breath. She denies fevers. She did have diarrhea for 4 days the resolved yesterday. She feels thirsty and dehydrated. She also has a history of colon cancer previously resected and then a small bowel obstruction that required surgical resection [address] Miranda. She has been home for the last 2 weeks after that surgery. She states that she has chronic low back pain and spinal stenosis and some chronic pain in her feet and lower legs but this is baseline. No weakness. No urinary symptoms. She does not have any history of cardiac disease. 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 Severity: Moderate Modifying factors: None REVIEW OF SYSTEMS: Constitutional: denies: chills, fever, recent illness, recent injury EENTM: denies: blurred vision, double vision, nose congestion Respiratory: denies: cough, shortness of breath Cardiac: denies: chest pain, irregular heart rate, lightheadedness, palpitations Gastrointestinal/Abdominal: denies: abdominal pain, diarrhea, nausea, vomiting, blood streaked stools Genitourinary: denies: dysuria, frequency, hematuria, pain Musculoskeletal: denies: joint pain, muscle pain Skin: denies: lesions, rash, jaundice, bruising Neurological: denies: headache, numbness, paresthesia, tingling, dizziness, weakness Hematologic/Lymphatic: denies: blood clots, easy bleeding, easy bruising Immunologic/allergic: denies: HIV/AIDS, transplant 10 systems reviewed and negative except as noted EXAM: GENERAL: Well-appearing, well-nourished and in no acute distress. HEAD: Atraumatic, normocephalic. EYES: Pupils equal round and reactive to light, extraocular movements intact, sclera anicteric, conjunctiva are normal. ENT: TMs normal, nares patent, oropharynx clear without exudates. Moist mucous membranes. NECK: Normal range of motion, supple without lymphadenopathy or JVD. LUNGS: Breath sounds clear to auscultation bilaterally and equal. No wheezes rales or rhonchi. HEART: Regular rate and rhythm without murmurs, rubs or gallops. ABDOMEN: Soft, nontender, normoactive bowel sounds. No guarding, no rebound. No masses appreciated. BACK: No CVA tenderness, no spinal tenderness, step-offs or deformities EXTREMITIES: Normal range of motion, no pitting or edema. No clubbing or cyanosis. NEUROLOGICAL: Cranial nerves II through XII grossly intact. Normal speech, baseline gait with a walker. 5/5 strength, normal movement in all extremities, normal sensation, normal reflexes PSYCH: Normal mood, normal affect. SKIN: Warm, dry, normal turgor, no visible rashes or lesions. Source: Patient Exam Limitations: No limitations - Personal History Current Tetanus/Diphtheria Vaccine: Unsure - Medical/Surgical History Hx Asthma: No Hx Chronic Respiratory Disease: No Hx Diabetes: No Hx Cardiac Disease: No Hx Renal Disease: No Hx Cirrhosis: No Hx Alcoholism: No Hx HIV/AIDS: No Hx Splenectomy or Spleen Trauma: No Other PMH: htn, spinal stenosis, colon cancer post resection, right sided iliac stent, small-bowel obstruction post resection, breast cancer post lumpectomy - Family History Significant Family History: No pertinent family hx - Social History Smoking Status: Former smoker Alcohol Use: Sober Drug Use: None Constitutional: Initial Vital Signs Temperature (C) 36.3 C 06/15/18 12:38 Heart Rate 77 06/15/18 12:38 Respiratory Rate 18 06/15/18 12:38 Blood Pressure 124/45 H 06/15/18 12:38 O2 Sat (%) 98 06/15/18 12:38 O2 Delivery Mode Room Air Allergies/Adverse Reactions: No Known Allergies Allergy (Verified 05/16/18 09:53) Home Medications: Medication Instructions Recorded Lisinopril/Hydrochlorothiazide 1 each PO DAILY 12/24/13 [Zestoretic 20-25 mg Tablet] Metoprolol Tartrate [Lopressor 100 100 mg PO TID 12/24/13 mg (*)] hydrALAZINE [Apresoline 50 mg (*)] 50 mg PO BID 12/24/13 Acetaminophen [Tylenol 325mg (*)] 325 mg PO DAILY PRN 06/15/18 Gabapentin [Neurontin 300 MG (*)] 300 mg PO BID 06/15/18 Ibuprofen [Motrin (*)] 200 mg PO DAILY PRN 06/15/18 Medical Decision Making - Diagnostics EKG Interpretation: An EKG obtained and was read and documented in trace view. Please see trace view for full reading and report. Slightly depressed T-waves, no previous for comparison. ED Course/Re-evaluation: 1:50 p.m. I discussed the case with [facility] who accepted for Dr. Medina. They prefer med surge. The patient is being given potassium here and fluids. I will leave the decision for blood transfusion to the medical service. Differential Diagnosis: Partial list of the Differential diagnosis considered include but were not limited to; syncope, arrhythmia, electrolyte abnormality, dehydration and although unlikely based on the history and physical exam, I also considered cauda equina , urinary tract infection, ischemia. - Data Points Laboratory Results: Laboratory Results 06/15/18 12:50 06/15/18 12:50 Medications Given: Gabapentin (Neurontin) 300 mg PO BID [facility] Stop: 12/12/18 20:59 Last Admin: 06/16/18 08:34 Dose: 300 mg Heparin Sodium (Porcine) (Heparin Sc Injection) 5,000 unit SC Q8HRS [facility] Stop: 12/12/18 21:59 Last Admin: 06/16/18 05:45 Dose: 5,000 unit Potassium Chloride/Sodium Chloride (Ns W/ 20 Kcl/L) 1,000 mls @ 100 mls/hr IV CONT [facility] Stop: 12/12/18 14:14 Last Admin: 06/16/18 05:53 Dose: 1,000 mls Ferric Sodium Gluconate Complex 125 mg/ Sodium Chloride 110 mls @ 110 mls/hr IV DAILY [facility] Stop: 06/18/18 17:29 Last Admin: 06/16/18 14:48 Dose: 110 mls Vancomycin HCl (Vancocin Oral Liquid) 125 mg PO QID [facility] PRN Reason: Protocol Stop: 07/15/18 15:59 Last Admin: 06/16/18 12:31 Dose: 125 mg Discontinued Medications Sodium Chloride (Ns) 1,000 mls @ 0 mls/hr IV EDNOW ONE; Wide Open PRN Reason: Protocol Stop: 06/15/18 13:00 Last Admin: 06/15/18 13:27 Dose: 1,000 mls Potassium Chloride (Potassium Cl 10 Meq (Premix)) 100 mls @ 100 mls/hr IV EDNOW ONE Stop: 06/15/18 14:35 Last Admin: 06/15/18 13:59 Dose: 100 mls Potassium Chloride (Potassium Cl 10 Meq (Premix)) 100 mls @ 100 mls/hr IV Q1H [facility] Stop: 06/15/18 15:59 Last Admin: 06/15/18 18:20 Dose: 100 mls Potassium Chloride (Potassium Cl 10 Meq (Premix)) 100 mls @ 100 mls/hr IV Q1H [facility] Stop: 06/16/18 11:29 Last Admin: 06/16/18 12:32 Dose: 100 mls Lorazepam (Ativan) 0.5 mg PO ONCE ONE Stop: 06/16/18 13:22 Last Admin: 06/16/18 13:29 Dose: 0.5 mg Potassium Chloride (Potassium Chloride Oral Liquid) 20 meq PO EDNOW ONE Stop: 06/15/18 13:37 Last Admin: 06/15/18 13:59 Dose: 20 meq Point of Care Test Results: Chemistry 06/15/18 12:54 POC Troponin I 0.00 ng/mL ng/mL (0.00-0.08) Departure - Departure Disposition: [facility] Inpatient Acute Clinical Impression: Hypokalemia, Pre-syncope Condition: Fair
[2018-06-15 13:07] LABS: PLATELET COUNT 527 10^3/uL (150-400)
--- NOTE | 2018-06-15 13:35 | CPEKG ---
Test Reason : OPEN Blood Pressure : / mmHG Vent. Rate : 072 BPM Atrial Rate : 072 BPM P-R Int : 176 ms QRS Dur : 102 ms QT Int : 419 ms P-R-T Axes : 031 042 230 degrees QTc Int : 459 ms Sinus rhythm Repol abnrm suggests ischemia, anterolateral Confirmed by Roderick Massey ([id number]) on 06/15/2018 1:35:11 PM Referred By: Confirmed By:Roderick Massey
[2018-06-15] MEDS ORDERED: POTASSIUM CL 20 MEQ/15 ML UDCUP PO ONE (13:36)
[2018-06-15] MEDS ORDERED: POTASSIUM Cl (KCl) 100 ML IV ONE (13:36)
[2018-06-15] MEDS ORDERED: ONDANSETRON DISINTEGRATING 4 MG TAB PO PRN (14:14)
[2018-06-15] MEDS ORDERED: ACETAMINOPHEN 325 MG TAB PO PRN (14:14)
[2018-06-15] MEDS ORDERED: ONDANSETRON 4 MG/2 ML VIAL IVP PRN (14:14)
--- NOTE | 2018-06-15 15:10 | PDGENHP ---
History and Physical - Chief Complaint weakness, fall - History of Present Illness 77 yo female with h/o recent hospitalization for SBO who underwent small bowel resection 05/17 presented to ED after worsening weakness and a fall. Her post- op course earlier this month was complicated by wound dehiscence for which she had mesh placed. She then developed a pelvic abscess and this was drained by IR on 05/31. She was discharged to SNF and has been home for about one week. She complains of frequent diarrhea, ongoing for several days, which is watery. She denies bloody stools, melena, fevers, abdominal pain or vomiting. She also complains of back pain and LE burning, which is worse with ambulation. She has a h/o PAD and had an iliac artery stent placed in 2015. She also reports a h/o spinal stenosis and was to undergo surgery for this, which was deferred due to other medical issues. No bowel or bladder incontinence. She reports poor oral intake recently and feels very weak. No CP, SOB or respiratory symptoms. In the ED, she was found to have low potassium and remains anemic (hgb 7.4 at hospital d/c 06/04). She was given 1L NS in the ED and is admitted for further evaluation. History Information - Allergies/Home Medication List Allergies/Adverse Reactions: No Known Allergies Allergy (Verified 05/16/18 09:53) Home Medications: Lisinopril/Hydrochlorothiazide [Zestoretic 20-25 mg Tablet] 1 each PO DAILY [Last Taken 06/15/18] Metoprolol Tartrate [Lopressor 100 mg (*)] 100 mg PO TID 12/24/13 [Last Taken 21:00] hydrALAZINE [Apresoline 50 mg (*)] 50 mg PO BID 12/24/13 [Last Taken 06/14/18 21 :00] Acetaminophen [Tylenol 325mg (*)] 325 mg PO DAILY PRN 06/15/18 [Last Taken Unknown] Gabapentin [Neurontin 300 MG (*)] 300 mg PO BID 06/15/18 [Last Taken 06/15/18] Ibuprofen [Motrin (*)] 200 mg PO DAILY PRN 06/15/18 [Last Taken Unknown] I have personally reviewed and updated: family history, medical history, social history, surgical history - Past Medical History cancer, hypertension Additional medical history: PAD s/p iliac a stent. H/O breast cancer. H/O colon cancer. Spinal stenosis - Surgical History Additional surgical history: small bowel resection 05/2018 followed by mesh placement for wound dehiscence and pelvic abscess drainage. lumpectomy for h/o breast cancer. colon cancer resection - Family History Positive for: non-pertinent - Social History Smoking Status: Former smoker Alcohol Use: Sober Drug Use: None Additional social history: Lives at home independently Review of Systems Review of Systems: ROS: 10pt was reviewed & negative except for what was stated in HPI & below Physical Exam Physical Exam: Temp Pulse Resp BP Pulse Ox 36.3 C 70 16 120/55 L 99 06/15/18 12:38 06/15/18 14:05 06/15/18 14:05 06/15/18 14:05 06/15/18 14:05 Constitutional: no apparent distress, chronically ill appearing Eyes: PERRL Ears, Nose, Mouth, Throat: dry mucous membranes Cardiovascular: regular rate and rhythym, no murmur, rub, or gallop Peripheral Pulses: 0: dorsalis-pedis (R) (heard by doppler), dorsalis-pedis (L) (heard by doppler) Respiratory: no respiratory distress, clear to auscultation Gastrointestinal: other (soft, nd, mild ttp, no r/r/g, +BS) Skin: warm Musculoskeletal: generalized weakness Neurologic: AAOx3 Psychiatric: interacting appropriately Lab Data & Imaging Review 06/15/18 12:50 06/15/18 12:50 WBC 16.90 10^3/uL (3.80-9.50) H 06/15/18 12:50 RBC 2.27 10^6/uL (4.18-5.33) L 06/15/18 12:50 Hgb 7.5 g/dL (12.6-16.3) L 06/15/18 12:50 Hct 22.7 % (38.0-47.0) L 06/15/18 12:50 MCV 100.0 fL (81.5-99.8) H 06/15/18 12:50 MCH 33.0 pg (27.9-34.1) 06/15/18 12:50 MCHC 33.0 g/dL (32.4-36.7) 06/15/18 12:50 RDW 14.2 % (11.5-15.2) 06/15/18 12:50 Plt Count 527 10^3/uL (150-400) H 06/15/18 12:50 MPV 9.2 fL (8.7-11.7) 06/15/18 12:50 Neut % (Auto) Not Reported 06/15/18 12:50 Lymph % (Auto) Not Reported 06/15/18 12:50 [place] % (Auto) Not Reported 06/15/18 12:50 Eos % (Auto) Not Reported 06/15/18 12:50 Baso % (Auto) Not Reported 06/15/18 12:50 Nucleat RBC Rel Count Not Reported 06/15/18 12:50 Absolute Neuts (auto) Not Reported 06/15/18 12:50 Absolute Lymphs (auto) Not Reported 06/15/18 12:50 Absolute Monos (auto) Not Reported 06/15/18 12:50 Absolute Eos (auto) Not Reported 06/15/18 12:50 Absolute Basos (auto) Not Reported 06/15/18 12:50 Absolute Nucleated RBC Not Reported 06/15/18 12:50 Immature Gran % Not Reported 06/15/18 12:50 Seg Neutrophils % 90.0 % 06/15/18 12:50 Band Neutrophils % 0.0 % 06/15/18 12:50 Lymphocytes % 4.0 % 06/15/18 12:50 Monocytes % 4.0 % 06/15/18 12:50 Eosinophils % 2.0 % 06/15/18 12:50 Basophils % 0.0 % 06/15/18 12:50 Metamyelocytes % 0.0 % 06/15/18 12:50 Myelocytes % 0.0 % 06/15/18 12:50 Promyelocytes % 0.0 % 06/15/18 12:50 Blast Cells % 0.0 % 06/15/18 12:50 Immature Gran # Not Reported 06/15/18 12:50 Absolute Seg Neuts 15.21 10^3/uL (1.70-6.50) H 06/15/18 12:50 Absolute Band Neuts 0.00 10^3/uL (0.00-0.70) 06/15/18 12:50 Absolute Lymphocytes 0.68 10^3/uL (1.00-3.00) L 06/15/18 12:50 Absolute Monocytes 0.68 10^3/uL (0.30-0.80) 06/15/18 12:50 Absolute Eosinophils 0.34 10^3/uL (0.03-0.40) 06/15/18 12:50 Absolute Basophils 0.00 10^3/uL (0.02-0.10) L 06/15/18 12:50 Absolute Metamyelocyte 0.00 10^3/mL (0.00-0.00) 06/15/18 12:50 Absolute Myelocytes 0.00 10^3/mL (0.00-0.00) 06/15/18 12:50 Absolute Promyelocytes 0.00 10^3/uL (0.00-0.00) 06/15/18 12:50 Absolute Plasma Cells 0.00 10^3/uL (0.00-0.00) 06/15/18 12:50 Nucleated RBCs 0 /100 WBC (0-0) 06/15/18 12:50 Absolute Blast Cells 0.00 10^3/uL (0.00-0.00) 06/15/18 12:50 Plasma Cells % 0.0 % 06/15/18 12:50 Toxic Granulation PRESENT H 06/15/18 12:50 Platelet Estimate INCREASED (ADEQ) H 06/15/18 12:50 Polychromasia 1+ H 06/15/18 12:50 Hypochromasia 1+ H 06/15/18 12:50 Oval Macrocytes 1+ H 06/15/18 12:50 Sodium 133 mEq/L (135-145) L 06/15/18 12:50 Potassium 2.5 mEq/L (3.3-5.0) L* 06/15/18 12:50 Chloride 97 mEq/L (97-110) 06/15/18 12:50 Carbon Dioxide 26 mEq/l (22-31) 06/15/18 12:50 Anion Gap 10 mEq/L (6-14) 06/15/18 12:50 BUN 28 mg/dL (7-23) H 06/15/18 12:50 Creatinine 1.6 mg/dL (0.6-1.0) H 06/15/18 12:50 Estimated GFR 31 06/15/18 12:50 Glucose 102 mg/dL (70-100) H 06/15/18 12:50 Calcium 8.2 mg/dL (8.5-10.4) L 06/15/18 12:50 Total Bilirubin 0.9 mg/dL (0.1-1.4) 06/15/18 14:26 POC Troponin I 0.00 ng/mL (0.00-0.08) 06/15/18 12:54 Patient ABO/Rh O POSITIVE 06/15/18 14:05 Antibody Screen NEGATIVE 06/15/18 14:05 Visualized and Interpreted EKG results: Yes EKG Interpretation: Positive for: ST depression EKG additional interpertation: downsloping ST depression in lateral leads, no prior for comparison Assessment & Plan Assessment: Weakness / fall - she denies LOC, but feels burning pain in her LE's which became so severe that her legs buckled and she fell. Suspect component of volume depletion contributed. She has h/o spinal stenosis and neuropathic pain , but also has PVD and prior iliac stent. LE pulses are detectable by doppler. -hydrate with IVF's as below -check DIANE's -check lumbar MRI in am (she was to have surgery for this in 2016, but it was deferred) -PT/OT evals Recent SBO s/p resection 05/17 followed by pelvic abscess drainage - Afebrile, no significant abdominal pain and exam is relatively benign. -low threshold to repeat CT abd/pelvis if any fevers or increased abdominal pain (can't get with contrast at this time with elevated Cr) noting recent pelvic abscess Diarrhea - concern for C diff with leukocytosis and recent hospitalization with atbx -send GI path panel -treat empirically with po vanc and d/c if GI panel neg CASH - suspect pre-renal in setting of diarrhea, along with nsaid and JELLY use -IVF's, recheck in am -send ua, along with urine Na and urine Cr to calculate FeNa -hold lisinopril, hctz and nsaids -avoid nephrotoxic agents Anemia - hgb stable / slightly improved since hospital d/c but still quite low at 7.5, hemodynamically stable with no e/o active bleeding -check iron studies, may benefit from iron replacement Hypokalemia - replace cautiously with reduced GFR Hypertension - holding anti-hypertensives with volume depletion and normotensive on arrival -resume home meds as indicated PAD - h/o left iliac stent, LE symptoms concerning for claudication -check DIANE's as above Abnormal EKG - ST depression noted, no priors for comparison. She is chest pain free, trop neg. -trend trop -repeat ekg prn if she develops CP to eval for dynamic changes -likely warrants risk stratification, will d/w cards prior to dc H/O colon cancer - s/p resection H/O breast cancer s/p lumpectomy Full code DVT PPLX - high risk, [facility] Dispo - admit to inpt, anticipate >48 hrs hospitalization with multiple medical problems including weakness, falls, diarrhea, volume depletion
[2018-06-15] MEDS: POTASSIUM Cl (KCl) 100 ML IV SCH ×2 (16:53→18:20)
[2018-06-15] MEDS: VANCOMYCIN 125 MG/2.5 ML UDL PO SCH ×2 (17:09→20:31)
[2018-06-15] MEDS: SODIUM FERRIC GLUCONAT/SUCROSE 125 MG in NS 100 ML IV SCH (19:53)
[2018-06-15] MEDS: NS W/ 20 KCl/L 1,000 ML IV SCH (20:02)
[2018-06-15] MEDS: GABAPENTIN 300 MG CAP PO SCH (20:27)
[2018-06-15] MEDS: HEPARIN 5,000 UNIT/0.5 ML INJ SC SCH (20:28)
--- NOTE | 2018-06-15 22:59 | SOAPPROG ---
SOAP Progress Note Assessment/Plan: Assessment/Plan: 1 month post sbo with complicated course Readmitted with hypokalemia cdiff + wound separation (no dehiscence) Dress with DSD tonight will need reapproximation with sutures (delayed primary closure) 06/15/18 22:56 Objective: Vital Signs Temp Pulse Resp BP Pulse Ox 36.6 C 85 20 101/45 L 91 L 06/15/18 20:00 06/15/18 20:00 06/15/18 20:00 06/15/18 20:00 06/15/18 20:00 Microbiology 06/15/18 16:00 Gastrointestinal Tract Panel (PCR) - Final Stool Clostridium Difficile Detected 06/14/18 06/15/18 06/16/18 05:59 05:59 05:59 Intake Total 1525 Balance 1525 ICD10 Worksheet Patient Problems: Problems Problem Status Onset Small bowel obstruction Acute Volvulus of small intestine Acute
[2018-06-16] MEDS: VANCOMYCIN 125 MG/2.5 ML UDL PO SCH ×4 (05:45→20:46)
[2018-06-16] MEDS: HEPARIN 5,000 UNIT/0.5 ML INJ SC SCH (05:45)
[2018-06-16] MEDS: NS W/ 20 KCl/L 1,000 ML IV SCH ×2 (05:53→22:15)
[2018-06-16 06:08] LABS: PLATELET COUNT 476 10^3/uL (150-400)
[2018-06-16] MEDS: POTASSIUM Cl (KCl) 100 ML IV SCH ×4 (07:40→12:32)
[2018-06-16] MEDS: GABAPENTIN 300 MG CAP PO SCH ×2 (08:34→20:46)
[2018-06-16] MEDS ORDERED: ENOXAPARIN 40 MG/0.4 ML SYR SC SCH (09:00)
--- NOTE | 2018-06-16 10:47 | HOSPPROG ---
Hospitalist Progress Note Assessment/Plan: Weakness / fall - Suspect component of volume depletion. She has h/o spinal stenosis and neuropathic pain, but also has PVD and prior iliac stent. LE pulses are detectable by doppler. -cont gentle hydration with IVF's -check DIANE's -check lumbar MRI (she was to have surgery for this in 2015, but it was deferred) -PT/OT evals C diff - cont po vanc Recent SBO s/p resection 05/17 followed by pelvic abscess drainage - Afebrile, no significant abdominal pain and exam is relatively benign. -low threshold to repeat CT abd/pelvis if any fevers or increased abdominal pain (can't get with contrast at this time with elevated Cr) noting recent pelvic abscess -appreciate surgical eval, wound dehiscence noted CSAH - suspect pre-renal, Cr trending down -cont IVF's -still awaiting urine Cr and Na to calculate FeNa -holding lisinopril, hctz and nsaids -avoid nephrotoxic agents Anemia - hgb down to 6.4 today -transfuse 1 u prbc's Hypokalemia - cont to replace cautiously with reduced GFR Hypertension - holding anti-hypertensives with volume depletion and normotensive on arrival -resume home meds as indicated PAD - h/o left iliac stent, LE symptoms concerning for claudication -check DIANE's as above Abnormal EKG - ST depression noted, no priors for comparison. She is chest pain free, trops neg -repeat ekg prn if she develops CP -likely warrants risk stratification, will d/w cards prior to dc H/O colon cancer - s/p resection H/O breast cancer s/p lumpectomy Full code DVT PPLX - high risk, [facility] Dispo - cont inpt Subjective: PT feels a little better. Still having diarrhea. No fevers. Abdomen less tender. No N/V. Reported burning legs on admission with weakness and fall, awaiting lumbar mri. Objective: Vital Signs Temp Pulse Resp BP Pulse Ox 36.6 C 91 18 114/47 L 92 06/16/18 08:11 06/16/18 08:11 06/16/18 08:11 06/16/18 08:11 06/16/18 08:11 Microbiology 06/15/18 16:00 Gastrointestinal Tract Panel (PCR) - Final Stool Clostridium Difficile Detected Laboratory Results 06/16/18 03:56 06/16/18 03:56 06/15/18 06/16/18 06/17/18 05:59 05:59 04:59 Intake Total 2725 Output Total 1 Balance 2724 - Physical Exam Constitutional: no apparent distress Eyes: PERRL Ears, Nose, Mouth, Throat: moist mucous membranes Cardiovascular: regular rate and rhythym Respiratory: no respiratory distress, clear to auscultation Gastrointestinal: other (soft, nd, mild TTP, no r/r/g, incision with mild dehiscence superiorly) Skin: warm Musculoskeletal: full muscle strength Neurologic: AAOx3 Psychiatric: interacting appropriately ICD10 Worksheet Patient Problems: Problems Problem Status Onset Hypokalemia Acute Pre-syncope Acute Small bowel obstruction Acute Volvulus of small intestine Acute
--- NOTE | 2018-06-16 12:01 | PDMN ---
Medical Necessity Medical necessity: Pt meets IP criteria per & MCG M-170; est los >2 mn for eval/tx of C-diff w/acute kidney injury, anemia, dehydration, hypokalemia, weakness & falls s/p recent SBO w/resection followed by mesh placement for wound dehiscence & pelvic abscess drainage; requiring further workup/monitoring , IVFs & therapies; per H&P & order 06/15/18
[2018-06-16] MEDS ORDERED: LORazepam 0.5 MG TAB PO ONE (13:21)
[2018-06-16] MEDS: SODIUM FERRIC GLUCONAT/SUCROSE 125 MG in NS 100 ML IV SCH (14:48)
--- NOTE | 2018-06-16 18:06 | ASMTCMCOM ---
CM Note CM Note Notes: Pt admitted for weakness and fall after recent discharge follow SBO and bowel resection with wound dehiscence and pelvis abscess. Pt also has spinal stenosis, hx of c diff, colon and breast CA and PAD. Pt lives independently with who is also dealing with health problems and unable to assist pt. Pt reports they have care 2x daily from a private pay agency, possibly [facility] but pt unable to recall the name. Left a message with pt's Yuridia to gather more information. PT and OT are recommending return to home with 24/7 supervision. Pt's needs TBD after speaking with . D/C Plan: home with 24/7 supervision or LTC? Date Signed: 06/16/2018 06:06 PM Electronically Signed By:Eneida Crowe
--- NOTE | 2018-06-16 18:24 | ASMTCMCOM ---
CM Note CM Note Notes: Addendum: Accurate phone number for is [phone]. Date Signed: 06/16/2018 06:24 PM Electronically Signed By:Eneida Crowe
[2018-06-17 04:01] LABS: PLATELET COUNT 452 10^3/uL (150-400)
[2018-06-17] MEDS: VANCOMYCIN 125 MG/2.5 ML UDL PO SCH ×4 (05:49→21:13)
[2018-06-17] MEDS: NS W/ 20 KCl/L 1,000 ML IV SCH (06:00)
[2018-06-17] MEDS ORDERED: PROTOCOL POTASSIUM 1 DOSE MISC PRN (06:39)
[2018-06-17] MEDS ORDERED: POTASSIUM CL 10 MEQ TAB PO ONE (07:11)
[2018-06-17] MEDS: GABAPENTIN 300 MG CAP PO SCH ×3 (08:40→21:13)
[2018-06-17] MEDS: SODIUM FERRIC GLUCONAT/SUCROSE 125 MG in NS 100 ML IV SCH (08:40)
--- NOTE | 2018-06-17 13:43 | HOSPPROG ---
Hospitalist Progress Note Assessment/Plan: 77 yo female with recent hospitalization for SBO and partial bowel resection returns after 1 week at home with diarrhea, weakness, back pain and LE burning LE weakness / pain resulting in fall - Query claudication vs neuropathic pain. Suspect component of volume depletion, but note h/o spinal stenosis in addition to h/o PAD and prior iliac stent. LE pulses are detectable by doppler. -L-spine MRI showed severe multi-level stenosis, neurosurg reviewed, doubts LE symptoms are from L-spine -obtain CT abd angio with b/l runoff to evaluate vascular status with low DIANE 's (see below). Would call Dr. Miranda tomorrow with result -cont PT/OT -cont gabapentin, will increase to TID C diff - cont po vanc Recent SBO s/p resection 05/17 followed by pelvic abscess drainage - Afebrile -appreciate surgical eval, wound dehiscence noted, s/p delayed primary closure by Dr. Adan 06/16 PAD - h/o left iliac stent, LE symptoms concerning for claudication. DIANE's abnormal 0.45 right, 0.29 left -CT angio as above, please call Dr. Miranda tomorrow with results (he is her primary surgeon) CASH - suspect pre-renal, resolved with IVF's Anemia - hgb down to 6.4 yest, s/p 1 u prbc's. Serum Fe low, ferritin may be elevated as APR in setting of C diff -s/p IV iron -cont to monitor, transfuse for hgb <7 -check hemoccult stool Hypokalemia - 2/2 GI losses with diarrhea / c diff. -resolved, cont replacement per protocol Hypertension - holding anti-hypertensives with volume depletion and normotensive on arrival -resume home meds as indicated Abnormal EKG - ST depression noted, no priors for comparison. She is chest pain free, trops neg -likely warrants risk stratification prior to dc H/O colon cancer - s/p resection H/O breast cancer s/p lumpectomy Full code DVT PPLX - high risk, [facility] held with low hgb, [facility]CD's Dispo - cont inpt Subjective: Pt still feels weak. She ambulated, didn't report LE burning, but notes didn't go very far. Still having some loose stools, but a little better. No fevers. No CP or SOB. Objective: Vital Signs Temp Pulse Resp BP Pulse Ox 36.3 C 91 21 H 141/72 H 98 06/17/18 12:00 06/17/18 12:00 06/17/18 12:00 06/17/18 12:00 06/17/18 12:00 Laboratory Results 06/17/18 03:46 06/17/18 03:46 06/16/18 06/17/18 06/18/18 06:59 05:59 05:59 Intake Total Output Total Balance - Physical Exam Constitutional: no apparent distress Eyes: PERRL Ears, Nose, Mouth, Throat: moist mucous membranes Cardiovascular: regular rate and rhythym Respiratory: no respiratory distress, clear to auscultation Gastrointestinal: normoactive bowel sounds, soft, non-tender abdomen Skin: warm Musculoskeletal: full muscle strength Neurologic: AAOx3, other (2+ patellar DTR's b/l, absent achilles DTR's b/l) Psychiatric: interacting appropriately ICD10 Worksheet Patient Problems: Problems Problem Status Onset Hypokalemia Acute Pre-syncope Acute Small bowel obstruction Acute Volvulus of small intestine Acute
[2018-06-17] MEDS ORDERED: IOPAMIDOL (ISOVUE 370) 100 ML BTL IV ONE (14:25)
--- NOTE | 2018-06-17 17:32 | ASMTCMCOM ---
CM Note CM Note Notes: Reviewed chart regarding discharge plan of care, pt's progress. Spoke with pt's Yuridia . Per Yuridia, pt recently had a 19 day stay at [facility]. She was discharged to [facility] (which per , "was a terrible experience and they will never go back"). The pt returned to [facility] s/p a fall. She is currently being treated for hypokalemia, renal insufficiency, dehydration, cdiff. PT/OT recommend home with 24/7 supervision. The pt was open with [facility] non-skilled care prior to admit (which per , "was a waste"). The pt's is interested in exploring all options for safest discharge possible. Discussed various SNF facilities - open to sending a referral to [facility]. unable to make drive to [facility] and [facility]. Also discussed option of HHC and 24/7 private duty assistance. open to both - referrals sent to [facility] (left message on intake line, referral sent via [employer] and update provided to [facility], operations intelligence RN). Call placed to [facility] for private duty assistance, CM to follow up on Monday06/18/18 with [facility]. Left voice message for Joce at [facility]; referral sent via [employer]. is unable to provide 24/7 care for pt secondary to his own health issues and concerns. Per , they do not have any family, friends, neighbors, orthodox connections, etc to help. CM to follow up with pt and on Monday 06/18 and will continue to follow for development of safe discharge plan. Discharge Plan: To be determined Date Signed: 06/17/2018 05:29 PM Electronically Signed By:Cheli Smith RN
[2018-06-18 04:24] LABS: PLATELET COUNT 439 10^3/uL (150-400)
[2018-06-18] MEDS: VANCOMYCIN 125 MG/2.5 ML UDL PO SCH ×4 (06:37→21:45)
[2018-06-18] MEDS: SODIUM FERRIC GLUCONAT/SUCROSE 125 MG in NS 100 ML IV SCH (09:28)
[2018-06-18] MEDS: GABAPENTIN 300 MG CAP PO SCH ×3 (09:28→21:45)
--- NOTE | 2018-06-18 11:12 | SOAPPROG ---
<Emily Soriano - Last Filed: 06/18/18 11:17> SOAP Progress Note Assessment/Plan: Assessment/Plan: C. difficile 1 month s/p SBR and wound revision. Being treated with IV vancomycin and electrolyte replenishment. No further closure required for small midline wound separation, will heal nicely with secondary intent. Patient with LE weakness, likely neurologic in nature. She has a history of PVD, for which a right SFO angioplasty and stent placement done in 2016. Will review CT runoff when completed. Patient seen and evaluated with Dr. Miranda. 06/18/18 11:17 Subjective: 77 y/o female 1 month s/p small bowel resection and wound revision. Patient states prior to her last hospital discharge she began having diarrhea. She was discharged to SNF, where she continued to have copious diarrhea. She now returns with diagnosis of C. difficile. Currently being treated with IV Vanco. Minimal change in BM habits thus far. No urinary complaints. Also has been having bilateral leg weakness, which is unchanged from her previous outpatient visits. Denies leg claudication or rest pain. Previous right SFA angioplasty done in 2015. Patient has chronic back pain as well. Objective: Vital Signs Temp Pulse Resp BP Pulse Ox 36.8 C 111 H 18 114/99 H 99 06/18/18 08:00 06/18/18 08:00 06/18/18 08:00 06/18/18 08:00 06/18/18 08:00 Laboratory Results 06/18/18 04:00 06/18/18 04:00 06/17/18 06/18/18 06/19/18 05:59 05:59 05:59 Intake Total 1005 Output Total 150 Balance 855 Physical Exam: Gen: A&O x3, appears comfortable HEENT: anicteric CV: 1+ bilateral femoral pulses, nonpalpable bilateral PT and DP Abdomen: soft, mild distension, nontender. No rebound or guarding. Midline incision clean, minimal wound separation without erythema or purulence, small incisional eschar Extremities: nontender, no edema Skin: Normal Neuro: nonfocal ICD10 Worksheet Patient Problems: Problems Problem Status Onset Hypokalemia Acute Pre-syncope Acute Small bowel obstruction Acute Volvulus of small intestine Acute <Zeke Miranda - Last Filed: 06/20/18 08:05> SOAP Progress Note Assessment/Plan: Assessment: Plan: Subjective: As above. Note - PO Vanco. Objective: Vital Signs Temp Pulse Resp BP Pulse Ox 36.6 C 86 16 128/64 H 98 06/20/18 07:53 06/20/18 07:53 06/20/18 07:53 06/20/18 07:53 06/20/18 07:53 Laboratory Results 06/20/18 03:49 06/18/18 04:00 06/19/18 06/20/18 06/21/18 05:59 05:59 05:59 Intake Total 1775 1474 Output Total 1 Balance 1773 7716
[2018-06-18] MEDS ORDERED: MAGNESIUM SULF 2 GM/WATER 50 ML IV ONE (11:48)
--- NOTE | 2018-06-18 12:34 | HOSPPROG ---
Hospitalist Progress Note Assessment/Plan: #LE weakness/fall: suspect dehydration -MRI shows severe multi-level stenosis, NSGY reviewed, not likely source - Query claudication vs neuropathic pain. -h/o PAD and prior iliac stent. CTA runoff shows high-grade stenosis intrarenal/ distal abd aorta, iliac stents patent -cont gabapentin, will increase to TID #C diff -PO Vanc #Tachycardia: multifactorial with anemia, diarrhea. Give gentle IVFs #Recent SBO: s/p resection 05/17 followed by pelvic abscess drainage - Afebrile wound dehiscence noted, s/p delayed primary closure by Dr. Adan 06/16 #PAD - h/o left iliac stent. Extensive infrarenal, iliac, popliteal disease. Discussed with Miranda and sxs not c/w claudication. Will FU outpatient #CASH - suspect pre-renal, resolved with IVF's #Anemia- s/p 1 unit RBC. s/p IV iron. Transfuse for hgb <7 -FOBT negative #Hypokalemia - 2/2 GI losses with diarrhea / c diff. -resolved, cont replacement per protocol #hypomagnesium: replete #Severe protein caloric malnutrition: albumin 1.9 #Hypertension - holding anti-hypertensives with volume depletion and normotensive on arrival -resume home meds as indicated #Abnormal EKG - ST depression noted, no priors for comparison. She is chest pain free, trops neg #H/O colon cancer - s/p resection #H/O breast cancer s/p lumpectomy #DVT ppx: SQK #Deconditioning: spoke with pt and and recommend SNF vs home care #Disp: inpatient admission for IVFs, PT Subjective: Weak. No dizziness or palpitations Objective: Vital Signs Temp Pulse Resp BP Pulse Ox 36.8 C 111 H 18 114/99 H 99 06/18/18 08:00 06/18/18 08:00 06/18/18 08:00 06/18/18 08:00 06/18/18 08:00 Laboratory Results 06/18/18 04:00 06/18/18 04:00 06/17/18 06/18/18 06/19/18 05:59 05:59 05:59 Intake Total 1005 Output Total 150 Balance 855 - Time Spent With Patient Time Spent with Patient: greater than 35 minutes Time Spent with Patient: Greater than 35 minutes spent on this patients care, greater than 50% of time spent counseling, educating, and coordinating care regarding the above mentioned plan. - Physical Exam Constitutional: other (pale) Ears, Nose, Mouth, Throat: dry mucous membranes Cardiovascular: tachycardia Respiratory: no respiratory distress Gastrointestinal: normoactive bowel sounds, soft, non-tender abdomen Genitourinary: no bladder fullness Skin: warm Musculoskeletal: generalized weakness Neurologic: AAOx3, CN II-XII Intact Psychiatric: interacting appropriately ICD10 Worksheet Patient Problems: Problems Problem Status Onset Hypokalemia Acute Pre-syncope Acute Small bowel obstruction Acute Volvulus of small intestine Acute
[2018-06-18] MEDS ORDERED: NS 1,000 ML IV SCH (14:30)
--- NOTE | 2018-06-18 16:30 | ASMTCMCOM ---
CM Note CM Note Notes: 06/18/2018 Case Management Note Met w/pt to discuss d/c needs. Pt requested referrals to SNF rehab; [facility] [place]. Faxed referrals. [facility]. Case Management d/c poc: SNF rehab pending acceptance. Case Management to follow. Date Signed: 06/18/2018 04:27 PM Electronically Signed By:Eleanor Mead RN
[2018-06-19] MEDS: VANCOMYCIN 125 MG/2.5 ML UDL PO SCH ×4 (05:28→21:56)
[2018-06-19] MEDS ORDERED: MAGNESIUM SULF 2 GM/WATER 50 ML IV ONE (08:13)
[2018-06-19] MEDS: GABAPENTIN 300 MG CAP PO SCH ×3 (08:47→21:56)
--- NOTE | 2018-06-19 12:23 | CPEKG ---
Test Reason : OPEN Blood Pressure : / mmHG Vent. Rate : 127 BPM Atrial Rate : 127 BPM P-R Int : 155 ms QRS Dur : 089 ms QT Int : 301 ms P-R-T Axes : 078 072 -80 degrees QTc Int : 438 ms Sinus tachycardia Ventricular premature complex Low voltage with right axis deviation Consider anterior infarct In comparison to prior ECG, the non specific ST/T wave changes are no longer noted. Confirmed by Will Howell ([id number]) on 06/19/2018 12:23:24 PM Referred By: Confirmed By:Will Howell
--- NOTE | 2018-06-19 13:21 | HOSPPROG ---
Hospitalist Progress Note Assessment/Plan: #LE weakness/fall: suspect dehydration, now walking the unit -MRI shows severe multi-level stenosis, NSGY reviewed, not likely source. -h/o PAD and prior iliac stent. CTA runoff shows high-grade stenosis intrarenal/ distal abd aorta, iliac stents patent -can uptitrate Gabapentin #C diff: PO Vanc (Day 4) #Tachycardia: multifactorial with anemia, diarrhea, deconditioning. Better after gentle IVFs #Recent SBO: s/p resection 05/17 followed by pelvic abscess drainage. s/p delayed primary closure by Dr. Adan 06/16. Bedside debridement today #PAD - h/o left iliac stent. Extensive infrarenal/iliac/popliteal disease. Dr. Miranda know patient well and will FU outpatient #CASH - suspect pre-renal, resolved with IVF's #Anemia: transfused 1 unit 06/16. FOBT negative. H/H borderline today. Give another with fatigue #Hypokalemia/hypoma/2 GI losses with diarrhea / c diff. Repleted #Severe protein caloric malnutrition: albumin 1.9. Dietary consulted. Ensure supplement #Hypertension - holding anti-hypertensives #Abnormal EKG - ST depression noted, no priors for comparison. She is chest pain free, trops neg #H/O colon cancer - s/p resection #H/O breast cancer s/p lumpectomy #DVT ppx: SCDs with anemia #Deconditioning: has been accepted to SNF when medically stable #Disp: inpatient admission for transfusion, PT Subjective: walking the unit. Fatigued. Denies SOB Objective: Vital Signs Temp Pulse Resp BP Pulse Ox 36.3 C 101 H 18 112/61 99 06/19/18 11:47 06/19/18 11:47 06/19/18 11:47 06/19/18 11:47 06/19/18 11:47 Laboratory Results 06/19/18 04:16 06/18/18 04:00 06/18/18 06/19/18 06/20/18 05:59 05:59 05:59 Intake Total 1005 1775 400 Output Total 150 1 Balance 855 1774 400 - Time Spent With Patient Time Spent with Patient: greater than 35 minutes Time Spent with Patient: Greater than 35 minutes spent on this patients care, greater than 50% of time spent counseling, educating, and coordinating care regarding the above mentioned plan. - Physical Exam Constitutional: other (frail, pale) Eyes: pale conjunctiva Ears, Nose, Mouth, Throat: moist mucous membranes, hearing normal Cardiovascular: regular rate and rhythym, edema (+ 1 ankle edema) Respiratory: no respiratory distress, No expiratory wheeze, No inspiratory crackles Gastrointestinal: normoactive bowel sounds, other (surgical incision dressed, CDI) Genitourinary: no bladder fullness Skin: warm Musculoskeletal: generalized weakness Neurologic: AAOx3, CN II-XII Intact Psychiatric: interacting appropriately ICD10 Worksheet Patient Problems: Problems Problem Status Onset Hypokalemia Acute Pre-syncope Acute Small bowel obstruction Acute Volvulus of small intestine Acute
--- NOTE | 2018-06-19 17:09 | SOAPPROG ---
SOAP Progress Note Assessment/Plan: Assessment/Plan: C. difficile 1 month s/p SBR and wound revision. Being treated with IV vancomycin and electrolyte replenishment. Incision eschar debrided today. Patient with LE weakness. CTA seen and reviewed with Dr. Miranda. Results discussed with patient- known aortoiliac level occlusive disease as well as bilateral SFA level occlusive disease with clean trifurcation runoff to bilateral ankles. Her current leg weakness remains most consistent with lumbar DJD rather than PVD. She currently does not have indication for further vascular intervention. Her options will be limited to this end. Likely including extra-anatomic bypass, if ever warranted. Will further reassess in the outpatient setting. Patient seen and evaluated with Dr. Miranda. 06/19/18 17:09 Subjective: Feeling better today. BMs slowly becoming more formed. No abdominal pain. No urinary complaints. Continues to have bilateral lower extremity weakness/pain with walking, which is unchanged. Objective: Vital Signs Temp Pulse Resp BP Pulse Ox 36.6 C 101 H 20 134/74 H 98 06/19/18 17:02 06/19/18 11:47 06/19/18 17:02 06/19/18 17:02 06/19/18 17:02 Laboratory Results 06/19/18 04:16 06/18/18 04:00 06/18/18 06/19/18 06/20/18 05:59 05:59 05:59 Intake Total 1005 1775 400 Output Total 150 1 Balance 855 1774 400 Physical Exam: Gen: A&O x3, appears comfortable HEENT: anicteric Skin: pale, dry, normal CV: nonpalpable PT and DP pulses bilaterally Abdomen: soft, mild distension, nontender. Midline incision clean with overlying 2 inch eschar and small wound separation Extremities: No edema, nontender Neuro: nonfocal ICD10 Worksheet Patient Problems: Problems Problem Status Onset Hypokalemia Acute Pre-syncope Acute Small bowel obstruction Acute Volvulus of small intestine Acute
[2018-06-20] MEDS: VANCOMYCIN 125 MG/2.5 ML UDL PO SCH ×4 (05:48→20:34)
[2018-06-20] MEDS: GABAPENTIN 300 MG CAP PO SCH ×3 (08:07→20:34)
--- NOTE | 2018-06-20 13:05 | SOAPPROG ---
SOAP Progress Note Assessment/Plan: Assessment/Plan: C. difficile 1 month s/p SBR and wound revision. Being treated with PO vancomycin and electrolyte replenishment. Midline abdominal wound healing well. No vascular intervention indicated at this time- discussed in detail with patient yesterday. Will continue to follow in the outpatient setting in 1-2 weeks. Patient seen and evaluated with Dr. Miranda. 06/20/18 14:10 Subjective: Feeling better today. Still having flatus and loose BMs. No abdominal pain, but feels bloated. No nausea or emesis. Tolerating PO meals well. No wound concerns. No change in leg symptoms. Objective: Vital Signs Temp Pulse Resp BP Pulse Ox 36.7 C 87 16 143/70 H 97 06/20/18 12:00 06/20/18 12:00 06/20/18 12:00 06/20/18 12:00 06/20/18 12:00 Laboratory Results 06/20/18 03:49 06/18/18 04:00 06/19/18 06/20/18 06/21/18 05:59 05:59 05:59 Intake Total 1775 1474 Output Total 1 Balance 1774 1474 Physical Exam: Gen: A&O, appears comfortable in recliner HEENT: anicteric Skin: normal Abdomen: soft, distended, nontender. No rebound or guarding. Midline incision healing well, no erythema, minimal fibrinous exudate at skin separation , no purulence. Extremities: no edema, nontender Neuro: nonfocal ICD10 Worksheet Patient Problems: Problems Problem Status Onset Hypokalemia Acute Pre-syncope Acute Small bowel obstruction Acute Volvulus of small intestine Acute
--- NOTE | 2018-06-20 14:48 | ASMTCMCOM ---
CM Note CM Note Notes: 06/20/2018 Case Management Note Faxed updates to [facility] and [facility]. Met w/pt to discuss preference. Pt is leanng towards [facility] but wanted to confirm with . Case Management will confirm choice closer to d/c date. Pt has been accepted to both facilities. Case Management d/c poc: [facility] vs [facility] in [place]. Case Management will follow. Date Signed: 06/20/2018 02:47 PM Electronically Signed By:Eleanor Mead RN
--- NOTE | 2018-06-20 16:35 | HOSPPROG ---
Hospitalist Progress Note Assessment/Plan: * Cdiff -still massive diarrhea -continue PO vanco * Severe lumbar spinal stenosis -pain improved with supportive care -consider ALIZE as outpatient if recurs -gabapentin increased * Severe PVD s/p recent LE stent -CTA reviewed by Dr. Miranda - no further intervention for now -needs better medical management -start Plavix/statin * Recent SBO s/p SB resection, complicated by wound dehiscence * HTN -slowly reintroduce BP meds as needed * Colon cancer s/p resection * Breast cancer s/p lumpectomy * Underweight w/ BMI 17.99 requiring treatment in the inpatient setting -dietary following Subjective: Still with massive diarrhea, too much to go to rehab Objective: Vital Signs Temp Pulse Resp BP Pulse Ox 36.4 C 82 12 132/62 H 99 06/20/18 15:26 06/20/18 15:26 06/20/18 15:26 06/20/18 15:26 06/20/18 15:26 Laboratory Results 06/20/18 03:49 06/18/18 04:00 06/19/18 06/20/18 06/21/18 05:59 05:59 05:59 Intake Total 1775 1474 Output Total 1 Balance 1774 1474 MRI Lspine - severe lumbar spinal stenosis CTA abd - severe BLE PVD old chart reviewed - last OR with Dr. Miranda 05/24 for wound dehiscence with washout - Physical Exam Constitutional: no apparent distress, appears nourished, not in pain Cardiovascular: regular rate and rhythym, no murmur, rub, or gallop Respiratory: no respiratory distress, no rales or rhonchi, clear to auscultation Gastrointestinal: soft, non-tender abdomen, distension, other (wound with dehiscence and purulent discharge), No ascites, No guarding, No rebound Skin: no rashes or abrasions, no fluctuance, no induration Neurologic: AAOx3, sensation intact bilaterally Psychiatric: interacting appropriately, not anxious, not encephalopathic, thought process linear ICD10 Worksheet Patient Problems: Problems Problem Status Onset Hypokalemia Acute Pre-syncope Acute Small bowel obstruction Acute Volvulus of small intestine Acute
[2018-06-21] MEDS: VANCOMYCIN 125 MG/2.5 ML UDL PO SCH ×4 (06:29→21:48)
[2018-06-21] MEDS: ATORVASTATIN CALCIUM 10 MG TAB PO SCH (08:53)
[2018-06-21] MEDS: CLOPIDOGREL BISULFATE 75 MG TAB PO SCH (08:53)
[2018-06-21] MEDS: GABAPENTIN 300 MG CAP PO SCH ×3 (08:54→21:48)
[2018-06-21] MEDS: LISINOPRIL 20 MG TAB PO SCH (08:54)
[2018-06-21] MEDS: HYDROCHLOROTHIAZIDE 25 MG TAB PO SCH (08:54)
[2018-06-21] MEDS ORDERED: HYDROCHLOROTHIAZIDE PO SCH (09:00)
[2018-06-21] MEDS ORDERED: LISINOPRIL PO SCH (09:00)
[2018-06-21] MEDS ORDERED: [UNRECOGNIZED DRUG - OTHER] PO SCH (09:00)
--- NOTE | 2018-06-21 15:45 | HOSPPROG ---
Hospitalist Progress Note Assessment/Plan: * Cdiff -still massive diarrhea -continue PO vanco * Severe lumbar spinal stenosis -pain improved with supportive care -consider ALIZE as outpatient if recurs -gabapentin increased * Severe PVD s/p recent LE stent -CTA reviewed by Dr. Miranda - no further intervention for now -needs better medical management -start Plavix/statin * Recent SBO s/p SB resection, complicated by wound dehiscence -wound care * HTN -slowly reintroduce BP meds as needed * Colon cancer s/p resection * Breast cancer s/p lumpectomy * Underweight w/ BMI 17.99 requiring treatment in the inpatient setting -dietary following Subjective: Still with massive diarrhea Objective: Vital Signs Temp Pulse Resp BP Pulse Ox 36.3 C 85 16 123/60 H 97 06/21/18 12:18 06/21/18 12:18 06/21/18 12:18 06/21/18 12:18 06/21/18 12:18 Laboratory Results 06/20/18 03:49 06/18/18 04:00 06/20/18 06/21/18 06/22/18 05:59 05:59 05:59 Intake Total 1474 890 400 Balance 1474 890 400 - Physical Exam Constitutional: no apparent distress, appears nourished, not in pain Cardiovascular: regular rate and rhythym, no murmur, rub, or gallop Respiratory: no respiratory distress, no rales or rhonchi, clear to auscultation Gastrointestinal: normoactive bowel sounds, soft, non-tender abdomen, no palpable masses Skin: no rashes or abrasions, no fluctuance, no induration Neurologic: AAOx3, sensation intact bilaterally Psychiatric: interacting appropriately, not anxious, not encephalopathic, thought process linear ICD10 Worksheet Patient Problems: Problems Problem Status Onset Small bowel obstruction Acute Volvulus of small intestine Acute Hypokalemia Acute Pre-syncope Acute
[2018-06-22 04:32] LABS: PLATELET COUNT 422 10^3/uL (150-400)
[2018-06-22] MEDS: VANCOMYCIN 125 MG/2.5 ML UDL PO SCH ×4 (06:13→20:21)
[2018-06-22] MEDS: HYDROCHLOROTHIAZIDE 25 MG TAB PO SCH (09:42)
[2018-06-22] MEDS: ATORVASTATIN CALCIUM 10 MG TAB PO SCH (09:42)
[2018-06-22] MEDS: LISINOPRIL 20 MG TAB PO SCH (09:42)
[2018-06-22] MEDS: CLOPIDOGREL BISULFATE 75 MG TAB PO SCH (09:42)
[2018-06-22] MEDS: GABAPENTIN 300 MG CAP PO SCH ×3 (09:42→20:21)
[2018-06-22] MEDS ORDERED: PROTOCOL POTASSIUM 1 DOSE MISC PRN (11:30)
[2018-06-22] MEDS ORDERED: PROTOCOL MAGNESIUM 1 DOSE IV PRN (11:30)
--- NOTE | 2018-06-22 11:34 | ASMTCMCOM ---
CM Note CM Note Notes: Pts case discussed in tx rounds. CM met w/ pt. Pt has chosen [facility]. Pt will most likely d/c tomorrow. Updates sent to [facility]. CM to follow. Plan: [facility] Date Signed: 06/22/2018 11:33 AM Electronically Signed By:JARED Rodriguez
[2018-06-22] MEDS ORDERED: MAGNESIUM SULF 1 GM/DEXTROSE 100 ML IV ONE (11:41)
[2018-06-22] MEDS ORDERED: POTASSIUM CL 10 MEQ TAB PO ONE (11:41)
[2018-06-22] MEDS: ENOXAPARIN 40 MG/0.4 ML SYR SC SCH (11:55)
--- NOTE | 2018-06-22 14:13 | WOCRNPDOC ---
WOCRN Advanced Assessment Note - Skin Integrity Problem, Advanced Assess Medial Proximal Abdomen Surgical Wound/Incision Dressing Type: Gauze, Other Other Dressing Type: medipore tape Dressing Description: Intact, Shadowed Closure Description: Not Approximated Exudate Amount: Minimal Exudate Color: Yellow Exudate Characteristic(s): Serous Integumentary Issue Intervention: Dressing Changed Verena Wound Tissue: Intact Wound Bed Color: [place] Wound Bed Constitution: Red/[place] - Non Granular Tissue Wound Edges: Attached, Well Defined Site Measurement - Head-to-Toe Length X Width X Depth (cm): 0.7x0.3x0.8 Skin Integrity Problem Comment: Patient with healing abodominal incision from surgery 05/16/18. There are two locations along the incision that remain open, this being the proximal wound. Dressing removed and wound bed cleaned with NS and gauze. Wound bed probed with a Qtip. Wound is small and discreet - no tunneling. Small piece of lilo pressed into wound bed with the blunt end of a Qtip and the remaining depth of the wound filled with 1/4 inch plain packing. Skin prep applied to verena wound tissue and covered with a band aid. Patient tolerated this well. Wound care will round again later next week if patient remains hospitalized. Based on plan discussed with [facility] Monique, discharge orders placed just in case patient is DC'd in the interim. Medial Distal Abdomen Surgical Wound/Incision Dressing Type: Gauze, Other Other Dressing Type: medipore tape Closure Description: Not Approximated Exudate Amount: Scant Exudate Color: Yellow Exudate Characteristic(s): Clear, Serous Integumentary Issue Intervention: Dressing Changed Verena Wound Tissue: Intact Wound Bed Color: [place] Wound Bed Constitution: Red/[place] - Non Granular Tissue Wound Edges: Attached, Well Defined Site Measurement - Head-to-Toe Length X Width X Depth (cm): 1.8x0.5x0.4 Skin Integrity Problem Comment: This is the distal of the two wounds along an otherwise healing abdominal incision. Wound bed cleaned with NS and gauze and skin prep applied to verena wound tissue. A small piece of Lilo was placed into the wound bed. Hydrofera Blue Ready foam was cut to fit the wound bed and steri- stripped in place. A band aid was then placed over the top to satisfy the patient. Patient tolerated the dressing change well. All questions answered. Wound care will round again later next week if patient remains hospitalized.
--- NOTE | 2018-06-22 16:13 | HOSPPROG ---
Hospitalist Progress Note Assessment/Plan: * Cdiff -slow improvement in diarrhea -continue PO vanco - add IV Flagyl x 24 hours given slow improvement * Severe lumbar spinal stenosis -pain improved with supportive care -consider ALIZE as outpatient if recurs -gabapentin increased * Severe PVD s/p recent LE stent -CTA reviewed by Dr. Miranda - no further intervention for now -needs better medical management -start Plavix/statin * Recent SBO s/p SB resection, complicated by wound dehiscence -wound care * HTN -slowly reintroduce BP meds as needed * Colon cancer s/p resection * Breast cancer s/p lumpectomy * Underweight w/ BMI 17.99 requiring treatment in the inpatient setting -dietary following Subjective: She still thinks diarrhea too much for SNF, but didn't have any BM overnight. 3 stools so far today Objective: Vital Signs Temp Pulse Resp BP Pulse Ox 36.5 C 88 19 144/75 H 99 06/22/18 16:00 06/22/18 16:00 06/22/18 16:00 06/22/18 16:00 06/22/18 16:00 Laboratory Results 06/22/18 04:08 06/22/18 04:08 06/21/18 06/22/18 06/23/18 05:59 05:59 05:59 Intake Total 890 550 Balance 890 550 - Physical Exam Constitutional: no apparent distress, appears nourished, not in pain Cardiovascular: regular rate and rhythym, no murmur, rub, or gallop Respiratory: no respiratory distress, no rales or rhonchi, clear to auscultation Gastrointestinal: normoactive bowel sounds, soft, non-tender abdomen, no palpable masses Skin: no rashes or abrasions, no fluctuance, no induration Neurologic: AAOx3, sensation intact bilaterally Psychiatric: interacting appropriately, not anxious, not encephalopathic, thought process linear ICD10 Worksheet Patient Problems: Problems Problem Status Onset Small bowel obstruction Acute Volvulus of small intestine Acute Hypokalemia Acute Pre-syncope Acute
[2018-06-22] MEDS: METOPROLOL TARTRATE 50 MG TAB PO SCH (20:21)
[2018-06-23 04:58] LABS: PLATELET COUNT 475 10^3/uL (150-400)
[2018-06-23] MEDS: VANCOMYCIN 125 MG/2.5 ML UDL PO SCH ×4 (05:44→20:53)
[2018-06-23] MEDS ORDERED: POTASSIUM CL 10 MEQ TAB PO ONE (07:32)
[2018-06-23] MEDS ORDERED: MAGNESIUM SULF 1 GM/DEXTROSE 100 ML IV ONE (07:32)
[2018-06-23] MEDS: CLOPIDOGREL BISULFATE 75 MG TAB PO SCH (09:35)
[2018-06-23] MEDS: LISINOPRIL 20 MG TAB PO SCH (09:35)
[2018-06-23] MEDS: GABAPENTIN 300 MG CAP PO SCH ×3 (09:35→21:01)
[2018-06-23] MEDS: ATORVASTATIN CALCIUM 10 MG TAB PO SCH (09:35)
[2018-06-23] MEDS: METOPROLOL TARTRATE 50 MG TAB PO SCH ×2 (09:35→20:53)
[2018-06-23] MEDS: HYDROCHLOROTHIAZIDE 25 MG TAB PO SCH (09:36)
[2018-06-23] MEDS: ENOXAPARIN 40 MG/0.4 ML SYR SC SCH (09:36)
--- NOTE | 2018-06-23 13:21 | ASMTCMCOM ---
CM Note CM Note Notes: Kiki from [facility] called: bed not available until Monday 06/25. I informed patient, and she is ok with this plan. She is still having diarrhea. Case Management will follow. Date Signed: 06/23/2018 01:21 PM Electronically Signed By:Connie Marley RN
--- NOTE | 2018-06-23 16:07 | HOSPPROG ---
Hospitalist Progress Note Assessment/Plan: * Cdiff -slow improvement in diarrhea -continue PO vanco - add IV Flagyl given slow improvement * Severe lumbar spinal stenosis -pain improved with supportive care -consider ALIZE as outpatient if recurs -gabapentin increased * Severe PVD s/p recent LE stent -CTA reviewed by Dr. Miranda - no further intervention for now -needs better medical management -start Plavix/statin * Recent SBO s/p SB resection, complicated by wound dehiscence -wound care * HTN -slowly reintroduce BP meds as needed * Colon cancer s/p resection * Breast cancer s/p lumpectomy * Underweight w/ BMI 17.99 requiring treatment in the inpatient setting -dietary following Subjective: Slow improvement - 5BM yesterday - didn't always make it to the bathroom in time Objective: Vital Signs Temp Pulse Resp BP Pulse Ox 36.9 C 71 20 151/71 H 97 06/23/18 12:32 06/23/18 12:32 06/23/18 12:32 06/23/18 12:32 06/23/18 12:32 Laboratory Results 06/23/18 04:22 06/23/18 04:22 06/22/18 06/23/18 06/24/18 05:59 05:59 05:59 Intake Total 550 320 Balance 550 320 - Physical Exam Constitutional: no apparent distress, appears nourished, not in pain Cardiovascular: regular rate and rhythym, no murmur, rub, or gallop Respiratory: no respiratory distress, no rales or rhonchi, clear to auscultation Gastrointestinal: normoactive bowel sounds, soft, non-tender abdomen, no palpable masses Skin: no rashes or abrasions, no fluctuance, no induration Neurologic: AAOx3, sensation intact bilaterally Psychiatric: interacting appropriately, not anxious, not encephalopathic, thought process linear ICD10 Worksheet Patient Problems: Problems Problem Status Onset Small bowel obstruction Acute Volvulus of small intestine Acute Hypokalemia Acute Pre-syncope Acute
[2018-06-24] MEDS: VANCOMYCIN 125 MG/2.5 ML UDL PO SCH ×4 (05:14→20:48)
[2018-06-24] MEDS: CLOPIDOGREL BISULFATE 75 MG TAB PO SCH (09:16)
[2018-06-24] MEDS: ATORVASTATIN CALCIUM 10 MG TAB PO SCH (09:16)
[2018-06-24] MEDS: LISINOPRIL 20 MG TAB PO SCH (09:16)
[2018-06-24] MEDS: METOPROLOL TARTRATE 50 MG TAB PO SCH ×2 (09:17→20:47)
[2018-06-24] MEDS: HYDROCHLOROTHIAZIDE 25 MG TAB PO SCH (09:17)
[2018-06-24] MEDS: ENOXAPARIN 40 MG/0.4 ML SYR SC SCH (09:17)
[2018-06-24] MEDS: GABAPENTIN 300 MG CAP PO SCH ×3 (09:17→20:48)
--- NOTE | 2018-06-24 14:45 | ASMTCMCOM ---
CM Note CM Note Notes: Patient discussed during rounds. Patient is still has diarrhea. Plan continues to be discharge tomorrow to [facility]. CM to follow. Current discharge plan: Discharge to [facility] 06/25/18 Date Signed: 06/24/2018 02:44 PM Electronically Signed By:Eli Simpson
--- NOTE | 2018-06-24 16:52 | HOSPPROG ---
Hospitalist Progress Note Assessment/Plan: * Cdiff -very slow improvement in diarrhea - still explosive diarrhea after 10 days -continue PO vanco - add IV Flagyl given slow improvement -check abd xray * Severe lumbar spinal stenosis -pain improved with supportive care -consider ALIZE as outpatient if recurs -gabapentin increased * Severe PVD s/p recent LE stent -CTA reviewed by Dr. Miranda - no further intervention for now -needs better medical management -start Plavix/statin * Recent SBO s/p SB resection, complicated by wound dehiscence -wound care * HTN -slowly reintroduce BP meds as needed * Colon cancer s/p resection * Breast cancer s/p lumpectomy * Underweight w/ BMI 17.99 requiring treatment in the inpatient setting -dietary following Subjective: Still with bad diarrhea during the day, but it has stopped at night Objective: Vital Signs Temp Pulse Resp BP Pulse Ox 36.7 C 68 20 139/67 H 96 06/24/18 15:34 06/24/18 15:34 06/24/18 15:34 06/24/18 15:34 06/24/18 15:34 Laboratory Results 06/23/18 04:22 06/23/18 04:22 06/23/18 06/24/18 06/25/18 05:59 05:59 05:59 Intake Total 320 400 450 Balance 320 400 450 - Physical Exam Constitutional: no apparent distress, appears nourished, not in pain Cardiovascular: regular rate and rhythym, no murmur, rub, or gallop Respiratory: no respiratory distress, no rales or rhonchi, clear to auscultation Gastrointestinal: normoactive bowel sounds, soft, non-tender abdomen, no palpable masses Skin: no rashes or abrasions, no fluctuance, no induration Neurologic: AAOx3, sensation intact bilaterally Psychiatric: interacting appropriately, not anxious, not encephalopathic, thought process linear ICD10 Worksheet Patient Problems: Problems Problem Status Onset Small bowel obstruction Acute Volvulus of small intestine Acute Hypokalemia Acute Pre-syncope Acute
[2018-06-25 04:18] LABS: PLATELET COUNT 576 10^3/uL (150-400)
[2018-06-25] MEDS: VANCOMYCIN 125 MG/2.5 ML UDL PO SCH ×4 (06:03→21:05)
[2018-06-25] MEDS: HYDROCHLOROTHIAZIDE 25 MG TAB PO SCH (07:48)
[2018-06-25] MEDS: METOPROLOL TARTRATE 50 MG TAB PO SCH ×2 (07:50→21:05)
[2018-06-25] MEDS: CLOPIDOGREL BISULFATE 75 MG TAB PO SCH (07:52)
[2018-06-25] MEDS: LISINOPRIL 20 MG TAB PO SCH (07:52)
[2018-06-25] MEDS: GABAPENTIN 300 MG CAP PO SCH ×3 (07:52→21:04)
[2018-06-25] MEDS: ATORVASTATIN CALCIUM 10 MG TAB PO SCH (07:52)
[2018-06-25] MEDS: ENOXAPARIN 40 MG/0.4 ML SYR SC SCH (07:53)
--- NOTE | 2018-06-25 16:58 | HOSPPROG ---
Hospitalist Progress Note Assessment/Plan: * Severe Cdiff -very slow improvement in diarrhea - still with ongoing watery BMs -continue PO vanco and IV Flagyl given slow improvement, plan to dc IV flagyl at discharge -AXR on 06/24 ok * Severe lumbar spinal stenosis -pain improved with supportive care -consider ALIZE as outpatient if recurs -gabapentin increased * Severe PVD s/p recent LE stent -CTA reviewed by Dr. Miranda - no further intervention for now -needs better medical management -started Plavix/statin * Recent SBO s/p SB resection, complicated by wound dehiscence -wound care * HTN -slowly reintroduce BP meds as needed * Colon cancer s/p resection * Breast cancer s/p lumpectomy * Underweight w/ BMI 17.99 requiring treatment in the inpatient setting -dietary following VTE ppx: LMWH Dispo: Remain inpatient until diarrhea improved. Plan for SNF. Subjective: 2 BMs overnight. Doing well this morning but then had watery diarrhea after both breakfast and lunch. Denies abd pain, fever. Objective: Vital Signs Temp Pulse Resp BP Pulse Ox 36.6 C 65 16 125/59 H 97 06/25/18 12:25 06/25/18 12:25 06/25/18 12:25 06/25/18 12:25 06/25/18 12:25 Laboratory Results 06/25/18 03:52 06/25/18 03:52 06/24/18 06/25/18 06/26/18 05:59 05:59 05:59 Intake Total 400 750 100 Balance 400 750 100 - Physical Exam Constitutional: no apparent distress, appears nourished, not in pain Eyes: PERRL, anicteric sclera, EOMI Ears, Nose, Mouth, Throat: moist mucous membranes, hearing normal, ears appear normal, no oral mucosal ulcers Cardiovascular: regular rate and rhythym, no murmur, rub, or gallop, No edema Respiratory: no respiratory distress, no rales or rhonchi, clear to auscultation Gastrointestinal: normoactive bowel sounds, soft, non-tender abdomen, no palpable masses Genitourinary: no bladder fullness, no bladder tenderness, no renal bruits Skin: no rashes or abrasions, no fluctuance, no induration Musculoskeletal: full muscle strength, no muscle tenderness, normal joint ROM Neurologic: AAOx3, sensation intact bilaterally Psychiatric: interacting appropriately, not anxious, not encephalopathic, thought process linear ICD10 Worksheet Patient Problems: Problems Problem Status Onset Hypokalemia Acute Pre-syncope Acute Small bowel obstruction Acute Volvulus of small intestine Acute
[2018-06-26] MEDS: VANCOMYCIN 125 MG/2.5 ML UDL PO SCH ×3 (06:01→16:16)
[2018-06-26 07:40] VITALS: BP 122/50
[2018-06-26] MEDS: ENOXAPARIN 40 MG/0.4 ML SYR SC SCH (08:40)
[2018-06-26] MEDS: GABAPENTIN 300 MG CAP PO SCH ×2 (08:40→16:16)
[2018-06-26] MEDS: ATORVASTATIN CALCIUM 10 MG TAB PO SCH (08:40)
[2018-06-26] MEDS: HYDROCHLOROTHIAZIDE 25 MG TAB PO SCH (08:40)
[2018-06-26] MEDS: LISINOPRIL 20 MG TAB PO SCH (08:40)
[2018-06-26] MEDS: METOPROLOL TARTRATE 50 MG TAB PO SCH (08:40)
[2018-06-26] MEDS: CLOPIDOGREL BISULFATE 75 MG TAB PO SCH (08:40)
--- NOTE | 2018-06-26 13:50 | PDIAF ---
- Diagnosis Diagnosis: c diff colitis Code Status: Full Code - Medication Management Electric Operator Antibiotics: vanco for 7 more days Halfway Antibiotic Stop Date: 07/03/18 Discharge Medications: electronically signed and located in the Home Medication List. - Orders Services needed: Registered Nurse, Certified Roving Changer, Master Flight Follower , Physical Therapy, Occupational Therapy Isolation Type: CDIFF Isolation, Contact Isolation Diet Recommendation: no restrictions on diet Diet Texture: Regular Texture Diet Additional Instructions: Wound care discharge instructions: Patient may shower. Wounds can either be covered to protect, or taken down and allowed to get wet and then promptly redressed as per below. For proximal abdominal wound, change packing daily and PRN. 1. Flush wound well with NS and dry with gauze 2. Skin prep param wound 3. Tear off a small piece of Marita (or other collagen based material) and use the blunt end of a Qtip to press into bottom of wound bed. 4. Use inch gauze packing and pack wound fully but not tightly. Leave a tail of at least 2 cm. 5. Cover with band aid For distal abdominal wound, change dressing every 3 days and PRN 1. Flush wound well with NS and dry with gauze. 2. Skin prep param wound 3. Tear off a small piece of Marita (or other collagen based material) and press into bottom of wound bed. 4. Cut Hydrofera Blue Ready (or similar absorbant foam) to fit wound bed and place over collagen. 5. Place steri strip over to hold in place. 6. Cover with band aid Gloria Fournier RN, Wound Care Team - Follow Up Care Current Providers and Referrals: Zeke Miranda MD [Medical Doctor] - follow up in 2 weeks Patient,NotPresent [Unknown] - As per Instructions
--- NOTE | 2018-06-26 14:10 | ASMTLACE ---
MARTIRE Length of stay for Answers: 7-13 days current admission Acuity / Level of Answers: Yes Care: Did the patient have an inpatient admission? Comorbidities - select Answers: History of falls all that apply Peripheral vascular disease Other Notes: SBO, HTN, pelvic abscess, spinal stenosi s # of Emergency department Answers: 1-2 visits in the last 6 months Score: 14 Date Signed: 06/26/2018 02:10 PM Electronically Signed By:Kaylin Narvaez
--- NOTE | 2018-06-26 14:13 | GDS ---
DIAGNOSES: 1. Clostridium difficile colitis. No loose stools for 24 hours at the time of discharge. 2. Recent small-bowel obstruction, status post resection with wound dehiscence, improving slowly. 3. Peripheral vascular disease, status post iliac artery stent. 4. Spinal stenosis with back pain. 5. Hypertension. 6. History of breast cancer. 7. History of colon cancer. PROCEDURES DONE: 1. Lumbar spine MRI. 2. Aorta with runoff CT angiogram. CONSULTATIONS: General surgery, Dr. Adan and Dr. Miranda. HOSPITAL COURSE: The patient is a 77-year-old with a history of recent hospitalization for small-bow el obstruction, who underwent small-bowel resection on May 17 and presented to the ER with incre asing weakness and a fall. Her postop course this month was complicated by wound dehiscence for whic h she had mesh placed, and she then developed a pelvic abscess, and this was drained by IR on May 31. She was discharged to half-way and had been home for about a week when she developed f requent diarrhea, increasing back pain, and lower extremity burning. On admission, she was diagnosed with C difficile colitis. She was treated with oral vancomycin and I V Flagyl was added because of her slow improvement. Over the course of her extended hospitalization, she finally has significant improvement in her diarrhea where she has not had a soft bowel movement in over 24 hours. Potassium and magnesium were replaced per protocol. On admission, she also suffered from back pain with lower extremity neuropathy. An MRI was done, [facility] did show some moderate spinal stenosis and grade 1 spondylolisthesis. This was treated with an in crease in her gabapentin and she will continue pain management as an outpatient. She can also follow up for possible epidural steroid injection when she is over her acute medical issues. She also has severe peripheral vascular disease and was had a stent placed and is followed by Dr. Miranda . A CT angiogram was ordered by Dr. Miranda and he felt no further intervention was indicated, but did s tart her on Plavix and statin for medical management. Regarding her recent bowel obstruction and wound dehiscence, Wound Care was involved and they will co ntinue packing that on an as-needed basis. She can follow up with Dr. Miranda as needed. Her high blood pressure was well controlled and she was resumed on some of her blood pressure medicat ions, the hydralazine, however, is currently on hold. She was on the medication twice daily; however , her blood pressure here is completely normal and we will hold that for now. CONDITION ON DISCHARGE: Good. DISCHARGE MEDICATIONS: Please see discharge medication form. DISPOSITION: She will be discharged to skilled rehab for ongoing care. FOLLOWUP: Follow up with Dr. Zeke Miranda, General Surgery as an outpatient for her wound care. She can also follow up with her primary care physician for ongoing spinal pain once she is discharged fro rehab. Total time spent with the patient on day of discharge and coordination of care is 35 minutes. /[id number]/MODL
--- NOTE | 2018-06-26 14:21 | ASMTDCNOTE ---
Case Management Discharge Discharge Order Complete? Answers: Yes Patient to Obtain Answers: Other Notes: [facility] Transportation Arranged Answers: Other Notes: [facility] Transport will Pick (Date 06/26/2018 04:00 PM & Time) Faxed Final Orders Answers: Yes Agency/Facility Transfer Answers: Yes Report Printed & Faxed to Receiving Agency Family Notified Answers: Yes Discharge Comments Notes: Pt transported to [facility]. Date Signed: 06/26/2018 02:20 PM Electronically Signed By:Kaylin Narvaez
--- NOTE | 2018-06-29 08:04 | PQFORM ---
PHYSICIAN QUERY FORM Needs Your Response This query form is being sent to you to assure this patient record is coded properly. Please respond to the question below: SCREEN PRINTING MACHINE OPERATOR HELPER QUESTION: Dr Underwood Malnutrition, Underweight, and BMI of 18 have been documented with the the chart but no mention was made on th Discharge Summary Please indicate which of the following diagnoses this patient had: ____ Malnutrition (specify type ) ____ Underweight __x__ Body mass of 18 ____ Other (Please specify ) ____ Unable to determine Thank You Radha ROBLES Alodize Machine Operator INSTRUCTIONS FOR RESPONSE: Answer question by clicking on the "Edit Document" button. Move cursor to area below the stars. When complete, hit "Save." Click on the "Sign" button, then click "Sign" again. Type in your PIN and hit "Enter." MTDD
== END 2018-06-26 16:36 | DRG 372 ==
LOC: EDUNIT# → OBSVTOIN 14:01 → F2W 15:25
PROVIDERS: ADMIT Hospitalist; ATTEND Hospitalist
DX: A04.72 Enterocolitis due to Clostridium difficile, not specified as recurrent (principal); M43.16 Spondylolisthesis, lumbar region; E87.6 Hypokalemia; I73.9 Peripheral vascular disease, unspecified; Z68.1 Body mass index [BMI] 19.9 or less, adult; I10 Essential (primary) hypertension; Z85.3 Personal history of malignant neoplasm of breast; Z87.891 Personal history of nicotine dependence; Z85.038 Personal history of other malignant neoplasm of large intestine
CPT/HCPCS: 84484-PO; 96374; 97116-GP; 97161-GP; 97165-GO; 97530-GO; 97530-GP; 97535-GO; G8978-GP-CK; G8979-GP-CI; G8987-GO-CI; G8988-GO-CI; J1644; J1650; J2916; J3475; J3480; P9016; P9021; Q9967

== ENCOUNTER 2018-07-21 13:39 | Emergency (ER) | payer OTHER ==
--- NOTE | 2018-07-21 14:52 | EDPHY ---
H & P Stated Complaint: Diarrhea x 5 days;thinks may be CDiff Time Seen by Provider: 07/21/18 14:52 HPI/ROS: CHIEF COMPLAINT: Diarrhea HISTORY OF PRESENT ILLNESS: This is a 77-year-old female history of C diff diarrhea in June of this year. She also has a history of bowel resection in May for cancer followed by small-bowel obstruction and some wound dehiscence. After her bout of C diff she was [facility] and returned home just before Thanksgiving. For the past 4 days she has been having explosive diarrheal stools, 2-3 daily. However, she states that not all of her bowel movements are diarrheal, some of them are formed. She has not had fever. She does not think that she is dehydrated and she does not feel weak or faint. Occasional mild crampy abdominal pain, no pain that has concerned her. REVIEW OF SYSTEMS: A ten system review of systems was performed and is negative with the exception of the items mentioned in the HPI. Past medical/surgical history: 1. C diff diarrhea 2. History of colon cancer with small bowel resection in May of 2018 followed by mesh placement for wound dehiscence and pelvic abscess drainage 3. History of breast cancer status post lumpectomy 4. Peripheral vascular disease with iliac artery stent 5. Spinal stenosis 6. Hypertension Social history: She lives with her . They live independently. No current tobacco use. She does not drink alcohol. No illicit drug use. General Appearance: Alert. Vital signs reviewed. Eyes: Pupils equal and round, no conjunctival injection, no discharge. Anicteric. ENT, Mouth: Mucous membranes are moist, no oropharyngeal erythema or edema. Neck: No lymphadenopathy, supple. Respiratory: Lungs are clear to auscultation; no wheezes, rales, or rhonchi. Cardiovascular: Regular rate and rhythm; no murmur, rub, or gallop. Gastrointestinal: Abdomen is soft and nontender, no masses or organomegaly, bowel sounds normal. Skin: Warm and dry, no rashes on exposed skin, normal color. Back: Nontender to palpation over the thoracolumbar spine. Neurological: Alert and oriented. Moving all four extremities easily and equally. Psychiatric: Normal affect. - Personal History Current Tetanus Diphtheria and Acellular Pertussis (TDAP): Yes - Medical/Surgical History Hx Asthma: No Hx Chronic Respiratory Disease: No Hx Diabetes: No Hx Cardiac Disease: No Hx Renal Disease: No Hx Cirrhosis: No Hx Alcoholism: No Hx HIV/AIDS: No Hx Splenectomy or Spleen Trauma: No Other PMH: htn, spinal stenosis, colon cancer post resection, right sided iliac stent, small-bowel obstruction post resection, breast cancer post lumpectomy - Social History Smoking Status: Former smoker Constitutional: Initial Vital Signs Temperature (C) 36.4 C 07/21/18 13:40 Heart Rate 78 07/21/18 13:40 Respiratory Rate 18 07/21/18 13:40 Blood Pressure 127/52 H 07/21/18 13:40 O2 Sat (%) 98 07/21/18 13:40 O2 Delivery Mode Room Air Allergies/Adverse Reactions: No Known Allergies Allergy (Verified 07/21/18 13:42) Home Medications: Medication Instructions Recorded Lisinopril/Hydrochlorothiazide 1 each PO DAILY 12/24/13 [Zestoretic 20-25 mg Tablet] Metoprolol Tartrate [Lopressor 100 100 mg PO TID 12/24/13 mg (*)] Acetaminophen [Tylenol 325mg (*)] 325 mg PO DAILY PRN 06/15/18 Gabapentin [Neurontin 300 MG (*)] 300 mg PO BID 06/15/18 Ibuprofen [Motrin (*)] 200 mg PO DAILY PRN 06/15/18 Acetaminophen [Tylenol 325mg (*)] 650 mg PO Q4HRS PRN tab 06/26/18 Atorvastatin Calcium [Lipitor 10 10 mg PO DAILY tab 06/26/18 mg (*)] Clopidogrel Bisulfate [Plavix (*)] 75 mg PO DAILY tab 06/26/18 Medical Decision Making ED Course/Re-evaluation: She was in the emergency room for over an hour and half without having a diarrheal stool. As she is only stooling 2-3 times daily (not all of them diarrheal), she does not wish to wait in the department until she has a liquid stool. I agree that she can return home and provide a stool sample to the lab. She will follow up with her primary care physician. We reviewed the danger signs that should prompt her to return to the emergency department. Differential Diagnosis: I considered a differential diagnosis of diarrhea that includes but is not limited to enteritis, malabsorption, functional diarrhea, viral diarrhea, bacterial diarrhea, protozoal diarrhea. Departure - Departure Disposition: Home, Routine, Self-Care Clinical Impression: Diarrhea Qualifiers: Diarrhea type: unspecified type Qualified Code(s): R19.7 - Diarrhea, unspecified Condition: Good Instructions: Acute Diarrhea (ED) Additional Instructions: Bring a stool sample to the laboratory when you are able to do so. Follow the instructions given by the nursing staff. After providing the stool sample, check in with Dr. Sharma for follow-up on the results. You can call the ED for these results also. If you develop fever, persistent abdominal pain, vomiting, frequent diarrhea-- you should be re-evaluated immediately. Referrals: Kylee Sharma MD [Primary Care Provider] - As per Instructions
[2018-07-21 15:26] VITALS: BP 128/72
== END 2018-07-21 15:26 | disposition home or self-care (01) ==
DX: R19.7 Diarrhea, unspecified (principal); Z85.038 Personal history of other malignant neoplasm of large intestine